=== PATIENT | female | born 1955 | race Caucasian/White ===

== ENCOUNTER 2017-03-16 12:27 | Emergency (ER) | payer BC ==
[2017-03-16] MEDS ORDERED: HYDROCODONE/ACETAMINOPHEN 5-325 MG TABLET PO ONE (13:04)
--- NOTE | 2017-03-16 13:08 | ER Document Report ---
ED General - General Chief Complaint: Fall Stated Complaint: FALL/TAILBONE PAIN, RIGHT KNEE PAIN Time Seen by Provider: 03/16/17 13:00 Mode of Arrival: Medic Information source: Patient Notes: 61-year-old female presents after a slip and fall on the ice landing on her back with complaints of right humeral right knee and low back pain. She denies any neurological deficits, EMS was called because patient was having difficulty trying to get off the ice. She notes that she has fractured her coccyx in the past. She denies any other neuro deficits TRAVEL OUTSIDE OF THE [place] IN LAST 30 DAYS: No - HPI Onset: Just prior to arrival Onset/Duration: Sudden Quality of pain: Achy Severity: Mild Pain Level: 1 Associated symptoms: Body/muscle aches Exacerbated by: Movement Relieved by: Denies Similar symptoms previously: Yes Recently seen / treated by doctor: No - Related Data Allergies/Adverse Reactions: erythromycin lactobionate [From Erythrocin] Allergy (Severe, Verified 03/16/17 12:29) Influenza Virus Vaccines [Influenza Virus Vaccine] Allergy (Severe, Verified 12:29) sumatriptan [From Imitrex] Allergy (Severe, Verified 03/16/17 12:29) pineapple [Pineapple] Allergy (Unknown, Verified 03/16/17 12:29) Past Medical History - Social History Smoking Status: Former Smoker Cigarette use (# per day): No Chew tobacco use (# tins/day): No Smoking Education Provided: No Frequency of alcohol use: Occasional Drug Abuse: None Family History: CAD, CVA, DM, Hyperlipidemia, Hypertension, Malignancy Patient has suicidal ideation: No Patient has homicidal ideation: No - Past Medical History Cardiac Medical History: Reports: Hx Hypercholesterolemia, Hx Hypertension Pulmonary Medical History: Denies: Hx Tuberculosis Endocrine Medical History: Reports: Hx Diabetes Mellitus Type 2 Renal/ Medical History: Denies: Hx Peritoneal Dialysis GI Medical History: Reports: Hx Gastroesophageal Reflux Disease Musculoskeltal Medical History: Reports Hx Arthritis, Reports Hx Musculoskeletal Deformity, Reports Hx Musculoskeletal Trauma Psychiatric Medical History: Reports: Hx Depression Traumatic Medical History: Reports: Hx Fractures Past Surgical History: Reports: Hx Adenoidectomy, Hx Appendectomy, Hx Gastric Bypass Surgery - Gastric sleeve, Hx Hysterectomy, Hx Nose Surgery - For fractured nose, Hx Oral Surgery - [place] teeth, Hx Orthopedic Surgery - orif left tibia and foot, Right knee replacement, Hx Tonsillectomy - Immunizations Hx Diphtheria, Pertussis, Tetanus Vaccination: Yes Review of Systems - Review of Systems Notes: REVIEW OF SYSTEMS: CONSTITUTIONAL : Denies fever, chills, or sweats. Denies recent illness. EENT: Denies eye, ear, throat, or mouth pain or symptoms. Denies nasal or sinus congestion or discharge. Denies throat, tongue, or mouth swelling or difficulty swallowing. CARDIOVASCULAR: Denies chest pain. Denies palpitations or racing or irregular heart beat. Denies ankle edema. RESPIRATORY: Denies cough, cold, or chest congestion. Denies shortness of breath, difficulty breathing, or wheezing. GASTROINTESTINAL: Denies abdominal pain or distention. Denies nausea, vomiting , or diarrhea. Denies blood in vomitus, stools, or per rectum. Denies black, tarry stools. Denies constipation. GENITOURINARY: Denies difficulty urinating, painful urination, burning, frequency, blood in urine, or discharge. FEMALE GENITOURINARY: Denies vaginal bleeding, heavy or abnormal periods, irregular periods. Denies vaginal discharge or odor. MUSCULOSKELETAL: Admits to right humerus right knee and low back pain SKIN: Denies rash, lesions or sores. HEMATOLOGIC : Denies easy bruising or bleeding. LYMPHATIC: Denies swollen, enlarged glands. NEUROLOGICAL: Denies confusion or altered mental status. Denies passing out or loss of consciousness. Denies dizziness or lightheadedness. Denies headache. Denies weakness or paralysis or loss of use of either side. Denies problems with gait or speech. Denies sensory loss, numbness, or tingling. Denies seizures. PSYCHIATRIC: Denies anxiety or stress. Denies depression, suicidal ideation, or homicidal ideation. ALL OTHER SYSTEMS REVIEWED AND NEGATIVE. PHYSICAL EXAMINATION: GENERAL: Well-appearing, well-nourished and in no acute distress. HEAD: Atraumatic, normocephalic. EYES: Pupils equal round and reactive to light, extraocular movements intact, conjunctiva are normal. ENT: Nares patent, oropharynx clear without exudates. Moist mucous membranes. NECK: Normal range of motion, supple without lymphadenopathy LUNGS: Breath sounds clear to auscultation bilaterally and equal. No wheezes rales or rhonchi. HEART: Regular rate and rhythm without murmurs ABDOMEN: Soft, nontender, nondistended abdomen. No guarding, no rebound. No masses appreciated. Female : deferred Musculoskeletal: Normal range of motion, no pitting or edema. No cyanosis. Patient does have tenderness in the lumbosacral region paraspinal, she has no tenderness with range of motion of the right knee postsurgical changes noted, it is tender on the right lateral aspect of the knee, patient has full range of motion of the right humerus elbow and shoulder. She has no tenderness at the shoulders or elbow NEUROLOGICAL: Cranial nerves grossly intact. Normal speech, normal gait. Normal sensory, motor exams PSYCH: Normal mood, normal affect. SKIN: Warm, Dry, normal turgor, no rashes or lesions noted. Dictation was performed using [employer] voice recognition software Physical Exam - Vital signs Vitals: Temp Pulse Resp BP Pulse Ox 98.9 F 77 16 114/67 99 03/16/17 12:34 03/16/17 12:34 03/16/17 12:34 03/16/17 12:34 03/16/17 12:34 Course - Re-evaluation Re-evalutation: 03/16/17 13:08 X-rays are pending, I have very low suspicion for any injury of the elbow shoulder or knee, I do expect a fracture of the coccyx given patient's presentation she will be given pain control otherwise looks extremely well has no neuro deficits 03/16/17 15:17 Imaging noted no obvious fracture, patient overall looks well. She will be discharged home with very close follow-up After performing a Medical Screening Examination, I estimate there is LOW risk for INTRACRANIAL HEMORRHAGE, UNSTABLE SPINE FRACTURE, CENTRAL CORD SYNDROME, CAUDA EQUINA, THORACIC AORTIC DISSECTION, PNEUMOTHORAX, PERFORATED BOWEL, RUPTURED ABDOMINAL AORTIC ANEURYSM, ACUTE TENDON RUPTURE, COMPARTMENT SYNDROME, or OPEN FRACTURE, thus I consider the discharge disposition reasonable. Also, there is no evidence or peritonitis, sepsis, or toxicity. I have reevaluated this patient multiple times and no significant life threatening changes are noted. The patient and I have discussed the diagnosis and risks, and we agree with discharging home to follow-up with their primary doctor with the understanding that symptoms and presentations can change. We also discussed returning to the Emergency Department immediately if new or worsening symptoms occur. We have discussed the symptoms which are most concerning (e.g., bloody stool, fever, changing or worsening pain, vomiting) that necessitate immediate return. - Vital Signs Vital signs: Temp Pulse Resp BP Pulse Ox 98.9 F 77 16 114/67 99 03/16/17 12:34 03/16/17 12:34 03/16/17 12:34 03/16/17 12:34 03/16/17 12:34 - Diagnostic Test Radiology reviewed: Image reviewed, Reports reviewed Discharge - Discharge Clinical Impression: Fall, Contusion, Arm pain, Back pain Condition: Stable Disposition: HOME, SELF-CARE Instructions: Contusion ([facility]) Additional Instructions: Follow up with your physician tomorrow for further care or return to the ED IMMEDIATELY if symptoms worsen or new concerns occur. If you cannot afford to follow up with your primary care physician a list of low cost clinics have been provided at the end of your discharge papers as well.
--- NOTE | 2017-03-16 15:00 | RADIOLOGY REPORT (SQ) ---
EXAM DESCRIPTION: HUMERUS RIGHT COMPLETED DATE/TIME: 03/16/2017 2:33 pm REASON FOR STUDY: slip fall on [place] COMPARISON: None. NUMBER OF VIEWS: Two views. TECHNIQUE: Two radiographic images were acquired of the right humerus to include elbow and shoulder in at least one projection. LIMITATIONS: None. FINDINGS: MINERALIZATION: Normal. BONES: No acute fracture or dislocation. No worrisome bone lesions. SOFT TISSUES: No obvious swelling or foreign body. OTHER: No other significant finding. IMPRESSION: NEGATIVE STUDY OF THE RIGHT HUMERUS. NO RADIOGRAPHIC EVIDENCE OF ACUTE INJURY. TECHNICAL DOCUMENTATION: JOB ID: [id number] [employer]- All Rights Reserved
--- NOTE | 2017-03-16 15:06 | RADIOLOGY REPORT (SQ) ---
EXAM DESCRIPTION: KNEE RIGHT 3 VIEWS COMPLETED DATE/TIME: 03/16/2017 2:33 pm REASON FOR STUDY: slip fall on [place] COMPARISON: None. NUMBER OF VIEWS: Three views TECHNIQUE: AP, lateral, and sunrise patella radiographic images acquired of the right knee. LIMITATIONS: None. FINDINGS: MINERALIZATION: Normal. BONES: No acute fracture or dislocation. No worrisome bone lesions. JOINT: Patient is status post right total knee replacement. The prosthesis appears well seated in th e distal femur and proximal tibia in the projections obtained. SOFT TISSUES: No soft tissue swelling. No radio-opaque foreign body. OTHER: Calcific densities are identified in the soft tissues anterior to the distal femur which may b e related to myositis ossificans IMPRESSION: No acute fracture dislocation. Status post right total knee replacement. Other finding s as noted above TECHNICAL DOCUMENTATION: JOB ID: [id number] [employer]- All Rights Reserved
--- NOTE | 2017-03-16 15:08 | RADIOLOGY REPORT (SQ) ---
EXAM DESCRIPTION: L SPINE WHOLE COMPLETED DATE/TIME: 03/16/2017 2:33 pm REASON FOR STUDY: slip fall on [place] COMPARISON: None. NUMBER OF VIEWS: Five views including obliques. TECHNIQUE: AP, lateral, oblique, and sacral radiographic images acquired of the lumbar spine. LIMITATIONS: None. FINDINGS: MINERALIZATION: Normal. SEGMENTATION: Transition vertebra is identified at the lumbar sacral junction ALIGNMENT: Normal. VERTEBRAE: Maintained height. No fracture or worrisome bone lesion. DISCS: Preserved height. No significant osteophytes or end plate irregularity. POSTERIOR ELEMENTS: Pedicles and facets are intact. No pars defect or posterior arch defects. HARDWARE: None in the spine. PARASPINAL SOFT TISSUES: Normal. PELVIS: Intact as visualized. No fractures or worrisome bone lesions. There is some bony deformity a t the level of the pubic symphysis which may be related to previous trauma OTHER: No other significant finding. IMPRESSION: No acute posttraumatic changes involving the lumbar spine. Other findings as noted [email or web address] TECHNICAL DOCUMENTATION: JOB ID: [id number] [employer]- All Rights Reserved
--- NOTE | 2017-03-16 15:09 | RADIOLOGY REPORT (SQ) ---
EXAM DESCRIPTION: SACRUM AND COCCYX COMPLETED DATE/TIME: 03/16/2017 2:33 pm REASON FOR STUDY: slip fall on [place] COMPARISON: None. NUMBER OF VIEWS: Three views. TECHNIQUE: AP, lateral, and tilt views of the sacrum and coccyx. LIMITATIONS: None. FINDINGS: MINERALIZATION: Normal. BONES: No acute fracture or dislocation. No worrisome bone lesions. SOFT TISSUES: No soft tissue swelling. No foreign body. OTHER: No other significant finding. IMPRESSION: NEGATIVE STUDY OF THE SACRUM AND COCCYX. TECHNICAL DOCUMENTATION: JOB ID: [id number] [employer]- All Rights Reserved
[2017-03-16 15:23] VITALS: BP 116/57
== END 2017-03-16 15:25 | disposition home or self-care (01) ==
LOC: ER 12:27
DX: S30.0XXA Contusion of lower back and pelvis, initial encounter (principal); M79.601 Pain in right arm; M54.5 Low back pain; M25.561 Pain in right knee; W00.0XXA Fall on same level due to ice and snow, initial encounter; Z87.891 Personal history of nicotine dependence
CPT/HCPCS: 72110; 72220; 99283

== ENCOUNTER → 2017-05-27 | Outpatient (CLI) | payer BC ==
--- NOTE | 2017-05-27 10:27 | RADIOLOGY REPORT (SQ) ---
EXAM DESCRIPTION: KUB COMPLETED DATE/TIME: 05/27/2017 9:34 am REASON FOR STUDY: Unspecified renal colic COMPARISON: None. NUMBER OF VIEWS: One view. TECHNIQUE: Supine radiographic image of the abdomen acquired. LIMITATIONS: None. FINDINGS: BOWEL GAS PATTERN: Normal bowel gas pattern. No dilated loops. CALCIFICATIONS: Multiple phleboliths. SOFT TISSUES: No gross mass or suggestion of organomegaly. HARDWARE: None in the abdomen. BONES: No acute fracture. No worrisome bone lesions. OTHER: No other significant finding. IMPRESSION: NO RADIOGRAPHIC EVIDENCE FOR ACUTE ABDOMINAL DISEASE. TECHNICAL DOCUMENTATION: JOB ID: [id number] [employer]- All Rights Reserved Reading location - IP/workstation name: [email or web address]
== END ==
LOC: OD 09:13
PROVIDERS: ATTEND Internal Medicine
DX: N23 Unspecified renal colic (principal)
CPT/HCPCS: 74018

== ENCOUNTER → 2017-07-19 | Outpatient (CLI) | payer BC ==
[2017-07-19 09:40] LABS: ABSOLUTE BASOPHILS # (AUTO) 0.1 10^3/uL (0.0-0.2); ABSOLUTE EOSINOPHILS # (AUTO) 0.2 10^3/uL (0.0-0.6); ABSOLUTE LYMPHOCYTES (AUTO) 2.7 10^3/uL (0.5-4.7); ABSOLUTE MONOCYTES (AUTO) 0.6 10^3/uL (0.1-1.4); BASOPHILS % (AUTO) 0.5 % (0-2); EOSINOPHILS % (AUTO) 1.3 % (0-6); HEMATOCRIT 39.2 % (36.0-47.0); HEMOGLOBIN 13.2 g/dL (12.0-15.5); LYMPHOCYTES % (AUTO) 23.7 % (13-45); MEAN CORPUSCULAR HEMOGLOBIN 30.8 pg (27.0-33.4); MEAN CORPUSCULAR HGB CONC 33.8 g/dL (32.0-36.0); MEAN CORPUSCULAR VOLUME 91 fl (80-97); MONOCYTES % (AUTO) 5.4 % (3-13); PLATELET COUNT 215 10^3/uL (150-450); RED CELL DISTRIBUTION WIDTH 13.1 % (11.5-14.0); SEGMENTED NEUTROPHILS % (AUTO) 69.1 % (42-78); TOTAL CELLS COUNTED % (AUTO) 100 %; WHITE BLOOD COUNT 11.6 10^3/uL (4.0-10.5)
[2017-07-19 10:02] LABS: ALANINE AMINOTRANSFERASE 36 U/L (9-52); ALBUMIN 4.1 g/dL (3.5-5.0); ALKALINE PHOSPHATASE 103 U/L (38-126); ANION GAP 12 (5-19); ASPARTATE AMINO TRANSFERASE 20 U/L (14-36); BILIRUBIN,DIRECT 0.3 mg/dL (0.0-0.4); BILIRUBIN,TOTAL 0.7 mg/dL (0.2-1.3); BLOOD UREA NITROGEN 21 mg/dL (7-20); CARBON DIOXIDE 29 mmol/L (22-30); CHLORIDE 100 mmol/L (98-107); CHOLESTEROL 107.77 mg/dL (0-200); GLUCOSE 268 mg/dL (75-110); POTASSIUM 4.7 mmol/L (3.6-5.0); TOTAL PROTEIN 6.2 g/dL (6.3-8.2); TRIGLYCERIDES 122 mg/dL (<150)
[2017-07-19 10:13] LABS: DIRECT LDL 52 mg/dL (<100); FREE T4 (FREE THYROXINE) 1.11 ng/dL (0.78-2.19)
[2017-07-19 10:20] LABS: UR PRO/CREAT RATIO RESULT 0.1 mg/mg (0.0-0.2); URINE CREATININE 68.8 mg/dL (15-278); URINE PROTEIN 9.8 mg/dL (<12)
[2017-07-19 10:28] LABS: THYROID STIMULATING HORMONE 2.48 uIU/mL (0.47-4.68)
[2017-07-20 13:56] LABS: CREATININE URINE 67.4 mg/dL (Not Estab.); MICROALBUMIN URINE 3.3 ug/mL (Not Estab.)
[2017-07-20 16:39] LABS: A/G RATIO 1.7 (0.7-1.7); ALBUMIN 2 3.9 g/dL (2.9-4.4); ALBUMIN UR 37.2 % (.); ALPHA-1-GLOBULIN URINE 4.4 % (.); ALPHA-2-GLOBULIN 2 0.7 g/dL (0.4-1.0); ALPHA-2-GLOBULIN URINE 11.8 % (.); GAMMA GLOBULIN 0.5 g/dL (0.4-1.8); GAMMA GLOBULIN URINE 18.7 % (.); GLOBULIN TOTAL 2.3 g/dL (2.2-3.9); M-SPIKE % UR Not Observed % (Not Observ); MONOCLONAL SPIKE Not Observed g/dL (Not Observ); PROTEIN TOTAL SERUM 6.2 g/dL (6.0-8.5); PROTEIN TOTAL URINE 7.2 mg/dL (Not Estab.)
== END ==
LOC: OD 08:02
PROVIDERS: ATTEND Internal Medicine
DX: E11.42 Type 2 diabetes mellitus with diabetic polyneuropathy (principal)
CPT/HCPCS: 36415; 80053; 80061; 82043; 82570; 83036; 84156; 84165; 84166; 84439; 84443; 85025

== ENCOUNTER 2017-07-31 15:35 | Observation (INO) | payer BC ==
[2017-07-31] MEDS ORDERED: ASPIRIN 81 MG TABLET, CHEWABLE PO ONE (17:03)
--- NOTE | 2017-07-31 17:06 | ER Document Report ---
ED Medical Screen (RME) - General Chief Complaint: Chest Pain Stated Complaint: CHEST PAIN Time Seen by Provider: 07/31/17 16:57 TRAVEL OUTSIDE OF THE [place] IN LAST 30 DAYS: No - HPI Patient complains to provider of: chest pain Notes: 07/31/17 17:05 Morbidly obese diabetic female A1c of approximately 13 presents with chest pressure and right hand tingling. Patient states the symptoms started on Monday. Has been so weak and tired all weekend. Today went to work and was very tired mildly nauseous. Patient denies fever chills or cough. No diarrhea or dysuria. Has had a negative stress test performed in the past most recently December 2015. - Related Data Allergies/Adverse Reactions: erythromycin lactobionate [From Erythrocin] Allergy (Severe, Verified 03/16/17 12:29) Influenza Virus Vaccines [Influenza Virus Vaccine] Allergy (Severe, Verified 12:29) sumatriptan [From Imitrex] Allergy (Severe, Verified 03/16/17 12:29) pineapple [Pineapple] Allergy (Unknown, Verified 03/16/17 12:29) Past Medical History - Past Medical History Cardiac Medical History: Reports: Hx Hypercholesterolemia, Hx Hypertension Pulmonary Medical History: Denies: Hx Tuberculosis Endocrine Medical History: Reports: Hx Diabetes Mellitus Type 2 Renal/ Medical History: Denies: Hx Peritoneal Dialysis GI Medical History: Reports: Hx Gastroesophageal Reflux Disease Musculoskeltal Medical History: Reports Hx Arthritis, Reports Hx Musculoskeletal Deformity, Reports Hx Musculoskeletal Trauma Psychiatric Medical History: Reports: Hx Depression Traumatic Medical History: Reports: Hx Fractures Past Surgical History: Reports: Hx Adenoidectomy, Hx Appendectomy, Hx Gastric Bypass Surgery - Gastric sleeve, Hx Hysterectomy, Hx Nose Surgery - For fractured nose, Hx Oral Surgery - [place] teeth, Hx Orthopedic Surgery - orif left tibia and foot, Right knee replacement, Hx Tonsillectomy - Immunizations Hx Diphtheria, Pertussis, Tetanus Vaccination: Yes Physical Exam - Vital signs Vitals: Temp Pulse Resp BP Pulse Ox 98.7 F 98 18 117/72 95 07/31/17 15:51 07/31/17 15:51 07/31/17 15:51 07/31/17 15:51 07/31/17 15:51 Course - Vital Signs Vital signs: Temp Pulse Resp BP Pulse Ox 98.7 F 98 18 117/72 95 07/31/17 15:51 07/31/17 15:51 07/31/17 15:51 07/31/17 15:51 07/31/17 15:51 Doctor's Discharge - Discharge Referrals: KRYSTAL REID MD [Primary Care Provider] - Follow up as needed
[2017-07-31] MEDS: NITROGLYCERIN 0.4 MG/TAB 25 TAB/BOTTLE SL PRN ×2 (17:25→20:52)
[2017-07-31 18:06] LABS: ABSOLUTE BASOPHILS # (AUTO) 0.1 10^3/uL (0.0-0.2); ABSOLUTE LYMPHOCYTES (AUTO) 2.8 10^3/uL (0.5-4.7); ABSOLUTE MONOCYTES (AUTO) 0.6 10^3/uL (0.1-1.4); ABSOLUTE NEUT (AUTO) 5.1 10^3/uL (1.7-8.2); BASOPHILS % (AUTO) 0.6 % (0-2); EOSINOPHILS % (AUTO) 0.5 % (0-6); HEMATOCRIT 40.4 % (36.0-47.0); HEMOGLOBIN 13.7 g/dL (12.0-15.5); LYMPHOCYTES % (AUTO) 32.4 % (13-45); MEAN CORPUSCULAR HEMOGLOBIN 31.1 pg (27.0-33.4); MEAN CORPUSCULAR VOLUME 92 fl (80-97); MONOCYTES % (AUTO) 7.4 % (3-13); PLATELET COUNT 252 10^3/uL (150-450); RED BLOOD COUNT 4.41 10^6/uL (3.72-5.28); RED CELL DISTRIBUTION WIDTH 13.3 % (11.5-14.0); SEGMENTED NEUTROPHILS % (AUTO) 59.1 % (42-78); TOTAL CELLS COUNTED % (AUTO) 100 %; WHITE BLOOD COUNT 8.7 10^3/uL (4.0-10.5)
--- NOTE | 2017-07-31 18:08 | RADIOLOGY REPORT (SQ) ---
EXAM DESCRIPTION: CHEST 2 VIEWS COMPLETED DATE/TIME: 07/31/2017 5:55 pm REASON FOR STUDY: chest pain COMPARISON: 04/24/2014 EXAM PARAMETERS: NUMBER OF VIEWS: two views TECHNIQUE: Digital Frontal and Lateral radiographic views of the chest acquired. RADIATION DOSE: NA LIMITATIONS: none FINDINGS: LUNGS AND PLEURA: No opacities, masses or pneumothorax. No pleural effusion. MEDIASTINUM AND HILAR STRUCTURES: No masses or contour abnormalities. HEART AND VASCULAR STRUCTURES: Heart normal size. No evidence for failure. BONES: No acute findings. HARDWARE: None in the chest. OTHER: No other significant finding. IMPRESSION: NO ACUTE RADIOGRAPHIC FINDING IN THE CHEST. TECHNICAL DOCUMENTATION: JOB ID: [id number] [employer]- All Rights Reserved Reading location - IP/workstation name: [email or web address]
[2017-07-31 18:27] LABS: ANION GAP 13 (5-19); BLOOD UREA NITROGEN 24 mg/dL (7-20); CALCIUM 10.6 mg/dL (8.4-10.2); CARBON DIOXIDE 29 mmol/L (22-30); CHLORIDE 100 mmol/L (98-107); GLUCOSE 267 mg/dL (75-110); POTASSIUM 4.8 mmol/L (3.6-5.0); SODIUM 141.5 mmol/L (137-145)
--- NOTE | 2017-07-31 19:21 | ER Document Report ---
ED General - General Chief Complaint: Chest Pain Stated Complaint: CHEST PAIN Time Seen by Provider: 07/31/17 16:57 Mode of Arrival: Ambulatory Information source: Patient Notes: 62-year-old female history of diabetes presents with complaints of pressure sensation on her chest. Patient notes that it feels like an elephant sitting on her chest rating down her right arm feels like electricity pain down the arms with tingling sensation. She denies any fevers or chills denies any shortness breath difficulty breathing TRAVEL OUTSIDE OF THE [place] IN LAST 30 DAYS: No - HPI Onset: Other - 2 day duration Onset/Duration: Persistent Quality of pain: Pressure Severity: Mild Pain Level: 1 Associated symptoms: Chest pain Exacerbated by: Denies Relieved by: Denies Similar symptoms previously: No Recently seen / treated by doctor: No Notes: Stress test 2016 but an abnormal on previous to this - Related Data Allergies/Adverse Reactions: erythromycin lactobionate [From Erythrocin] Allergy (Severe, Verified 03/16/17 12:29) Influenza Virus Vaccines [Influenza Virus Vaccine] Allergy (Severe, Verified 12:29) sumatriptan [From Imitrex] Allergy (Severe, Verified 03/16/17 12:29) pineapple [Pineapple] Allergy (Unknown, Verified 03/16/17 12:29) Past Medical History - Social History Smoking Status: Never Smoker Cigarette use (# per day): No Chew tobacco use (# tins/day): No Smoking Education Provided: No Frequency of alcohol use: None Drug Abuse: None Family History: CAD, CVA, DM, Hyperlipidemia, Hypertension, Malignancy Patient has suicidal ideation: No Patient has homicidal ideation: No - Past Medical History Cardiac Medical History: Reports: Hx Hypercholesterolemia, Hx Hypertension Pulmonary Medical History: Denies: Hx Tuberculosis Endocrine Medical History: Reports: Hx Diabetes Mellitus Type 2 Renal/ Medical History: Denies: Hx Peritoneal Dialysis GI Medical History: Reports: Hx Gastroesophageal Reflux Disease Musculoskeltal Medical History: Reports Hx Arthritis, Reports Hx Musculoskeletal Deformity, Reports Hx Musculoskeletal Trauma Psychiatric Medical History: Reports: Hx Depression Traumatic Medical History: Reports: Hx Fractures Past Surgical History: Reports: Hx Adenoidectomy, Hx Appendectomy, Hx Gastric Bypass Surgery - Gastric sleeve, Hx Hysterectomy, Hx Nose Surgery - For fractured nose, Hx Oral Surgery - [place] teeth, Hx Orthopedic Surgery - orif left tibia and foot, Right knee replacement, Hx Tonsillectomy - Immunizations Hx Diphtheria, Pertussis, Tetanus Vaccination: Yes Review of Systems - Review of Systems Notes: REVIEW OF SYSTEMS: CONSTITUTIONAL : Denies fever, chills, or sweats. Denies recent illness. EENT: Denies eye, ear, throat, or mouth pain or symptoms. Denies nasal or sinus congestion or discharge. Denies throat, tongue, or mouth swelling or difficulty swallowing. CARDIOVASCULAR: Admits to chest pain RESPIRATORY: Denies cough, cold, or chest congestion. Denies shortness of breath, difficulty breathing, or wheezing. GASTROINTESTINAL: Denies abdominal pain or distention. Denies nausea, vomiting , or diarrhea. Denies blood in vomitus, stools, or per rectum. Denies black, tarry stools. Denies constipation. GENITOURINARY: Denies difficulty urinating, painful urination, burning, frequency, blood in urine, or discharge. FEMALE GENITOURINARY: Denies vaginal bleeding, heavy or abnormal periods, irregular periods. Denies vaginal discharge or odor. MUSCULOSKELETAL: Denies back or neck pain or stiffness. Denies joint pain or swelling. SKIN: Denies rash, lesions or sores. HEMATOLOGIC : Denies easy bruising or bleeding. LYMPHATIC: Denies swollen, enlarged glands. NEUROLOGICAL: Denies confusion or altered mental status. Denies passing out or loss of consciousness. Denies dizziness or lightheadedness. Denies headache. Denies weakness or paralysis or loss of use of either side. Denies problems with gait or speech. Denies sensory loss, numbness, or tingling. Denies seizures. PSYCHIATRIC: Denies anxiety or stress. Denies depression, suicidal ideation, or homicidal ideation. ALL OTHER SYSTEMS REVIEWED AND NEGATIVE. PHYSICAL EXAMINATION: GENERAL: Well-appearing, well-nourished and in no acute distress. HEAD: Atraumatic, normocephalic. EYES: Pupils equal round and reactive to light, extraocular movements intact, conjunctiva are normal. ENT: Nares patent, oropharynx clear without exudates. Moist mucous membranes. NECK: Normal range of motion, supple without lymphadenopathy LUNGS: Breath sounds clear to auscultation bilaterally and equal. No wheezes rales or rhonchi. HEART: Regular rate and rhythm without murmurs ABDOMEN: Soft, nontender, nondistended abdomen. No guarding, no rebound. No masses appreciated. Female : deferred Musculoskeletal: Normal range of motion, no pitting or edema. No cyanosis. NEUROLOGICAL: Cranial nerves grossly intact. Normal speech, normal gait. Normal sensory, motor exams PSYCH: Normal mood, normal affect. SKIN: Warm, Dry, normal turgor, no rashes or lesions noted. Dictation was performed using [employer] voice recognition software Physical Exam - Vital signs Vitals: Temp Pulse Resp BP Pulse Ox 98.7 F 98 18 117/72 95 07/31/17 15:51 07/31/17 15:51 07/31/17 15:51 07/31/17 15:51 07/31/17 15:51 Course - Re-evaluation Re-evalutation: 07/31/17 19:19 First set of cardiac enzymes negative, patient's blood sugars noted to be elevated otherwise she is at rest in no discomfort, I will observe her due to her risk factors and presentation her primary care physician will admit - Vital Signs Vital signs: Temp Pulse Resp BP Pulse Ox 98.7 F 98 18 117/72 95 07/31/17 15:51 07/31/17 15:51 07/31/17 15:51 07/31/17 15:51 07/31/17 15:51 - Laboratory Result Diagrams: 07/31/17 17:47 07/31/17 17:47 Laboratory results interpreted by me: 07/31/17 17:47 BUN 24 H Glucose 267 H Calcium 10.6 H - Diagnostic Test Radiology reviewed: Image reviewed - 2 view chest x-ray notes no acute abnormality, Reports reviewed - EKG Interpretation by Me EKG shows normal: Sinus rhythm, [place], Intervals, QRS Complexes Discharge - Discharge Clinical Impression: Chest pain Qualifiers: Chest pain type: unspecified Qualified Code(s): R07.9 - Chest pain, unspecified Condition: Stable Disposition: ADMITTED OBSERVATION Admitting Provider: [facility] Admitted: Telemetry Referrals: KRYSTAL REID MD [Primary Care Provider] - Follow up as needed
--- NOTE | 2017-07-31 19:57 | EKG REPORT ---
SEVERITY:- OTHERWISE NORMAL ECG - SINUS RHYTHM RIGHT AXIS DEVIATION LOW VOLTAGE IN FRONTAL LEADS : Confirmed by: Margarette Del Rio MD 31-Jul-2017 19:56:34
[2017-07-31] MEDS ORDERED: ALBUTEROL SULFATE HFA (90 MCG/PUFF) 200 PUFF/8.5 GM MDI IH PRN (21:35)
[2017-07-31] MEDS ORDERED: GLUCAGON,HUMAN RECOMB 1 MG INJ IM PRN (21:41)
[2017-07-31] MEDS ORDERED: DEXTROSE 40% GEL 15 GM TUBE PO PRN ×2 (21:41)
[2017-07-31] MEDS ORDERED: DEXTROSE 50%-WATER 25 GM/50 ML DISP.SYRIN IV PRN ×2 (21:41)
[2017-07-31] MEDS ORDERED: (PENDING PHARMACY ID) (Esomeprazole Mag Trihydrate [Nexium] 40 MG) PO SCH (21:45)
[2017-07-31] MEDS ORDERED: (PENDING PHARMACY ID) (Canagliflozin [Invokana] 100 MG) PO SCH (21:45)
[2017-07-31] MEDS ORDERED: (PENDING PHARMACY ID) (Mv-Min/Iron/Folic/Calcium/Vitk [Women's Multivitamin Tablet] 1 TAB) PO SCH (21:45)
[2017-07-31 22:09] LABS: ABSOLUTE BASOPHILS # (AUTO) 0.1 10^3/uL (0.0-0.2); ABSOLUTE EOSINOPHILS # (AUTO) 0.1 10^3/uL (0.0-0.6); ABSOLUTE LYMPHOCYTES (AUTO) 3.7 10^3/uL (0.5-4.7); ABSOLUTE MONOCYTES (AUTO) 0.8 10^3/uL (0.1-1.4); ABSOLUTE NEUT (AUTO) 4.4 10^3/uL (1.7-8.2); BASOPHILS % (AUTO) 1.3 % (0-2); EOSINOPHILS % (AUTO) 0.8 % (0-6); HEMATOCRIT 39.4 % (36.0-47.0); HEMOGLOBIN 13.5 g/dL (12.0-15.5); LYMPHOCYTES % (AUTO) 40.8 % (13-45); MEAN CORPUSCULAR HEMOGLOBIN 31.1 pg (27.0-33.4); MEAN CORPUSCULAR HGB CONC 34.4 g/dL (32.0-36.0); MEAN CORPUSCULAR VOLUME 91 fl (80-97); MONOCYTES % (AUTO) 8.6 % (3-13); PLATELET COUNT 221 10^3/uL (150-450); RED BLOOD COUNT 4.34 10^6/uL (3.72-5.28); RED CELL DISTRIBUTION WIDTH 13.3 % (11.5-14.0); SEGMENTED NEUTROPHILS % (AUTO) 48.5 % (42-78); TOTAL CELLS COUNTED % (AUTO) 100 %; WHITE BLOOD COUNT 9.2 10^3/uL (4.0-10.5)
[2017-07-31] MEDS: ENOXAPARIN SODIUM INJ 100 MG/1 ML DISP.SYRIN SUBCUT SCH (22:09)
[2017-07-31 22:11] LABS: INTERNATIONAL RATION (INR) 0.96; PROTHROMBIN TIME 13.3 SEC (11.4-15.4)
[2017-07-31] MEDS ORDERED: METFORMIN HCL 500 MG TABLET PO ONE (22:15)
[2017-07-31] MEDS ORDERED: MULTIVITAMIN TABLET PO ONE (22:15)
[2017-07-31] MEDS ORDERED: LANSOPRAZOLE 30 MG TAB.RAP.DR PO ONE (22:15)
[2017-07-31] MEDS ORDERED: ATORVASTATIN CALCIUM 40 MG TABLET PO ONE (22:15)
[2017-07-31] MEDS ORDERED: SERTRALINE HCL 50 MG TABLET PO ONE (22:15)
[2017-07-31] MEDS ORDERED: LISINOPRIL 10 MG TABLET PO ONE (22:15)
[2017-07-31] MEDS ORDERED: LORATADINE 10 MG TABLET PO ONE (22:15)
[2017-07-31 22:29] LABS: ANION GAP 14 (5-19); BLOOD UREA NITROGEN 23 mg/dL (7-20); CALCIUM 10.6 mg/dL (8.4-10.2); CARBON DIOXIDE 26 mmol/L (22-30); CHLORIDE 103 mmol/L (98-107); GLUCOSE 208 mg/dL (75-110); PHOSPHORUS 4.2 mg/dL (2.5-4.5); POTASSIUM 4.2 mmol/L (3.6-5.0); SODIUM 142.6 mmol/L (137-145)
[2017-07-31] MEDS ORDERED: CLOPIDOGREL BISULFATE 300 MG TABLET PO ONE (22:30)
[2017-07-31 22:50] LABS: CREATINE KINASE MB 0.35 ng/mL (<4.55)
[2017-07-31 22:53] LABS: TROPONIN I < 0.012 ng/mL
[2017-08-01 00:39] LABS: APPEARANCE,URINE CLEAR; BILIRUBIN,URINE NEGATIVE (NEGATIVE); COLOR,URINE YELLOW; GLUCOSE, URINE >=500 mg/dL (NEGATIVE); KETONES,URINE NEGATIVE (NEGATIVE); LEUKOCYTE ESTERASE,URINE NEGATIVE (NEGATIVE); NITRITE,URINE NEGATIVE (NEGATIVE); PROTEIN,URINE NEGATIVE (NEGATIVE); URINE SPECIFIC GRAVITY 1.029; UROBILINOGEN,URINE NEGATIVE mg/dL (<2.0)
[2017-08-01 04:15] LABS: CHOLESTEROL 123.03 mg/dL (0-200); TRIGLYCERIDES 227 mg/dL (<150)
[2017-08-01 04:25] LABS: DIRECT LDL 56 mg/dL (<100)
[2017-08-01 04:26] LABS: CREATINE KINASE MB 0.32 ng/mL (<4.55); VLDL CHOLESTEROL 45.4 mg/dL (10-31)
[2017-08-01 04:27] LABS: TROPONIN I < 0.012 ng/mL
[2017-08-01] MEDS: METFORMIN HCL 500 MG TABLET PO SCH ×2 (07:59→16:26)
--- NOTE | 2017-08-01 09:54 | EKG REPORT ---
SEVERITY:- BORDERLINE ECG - SINUS RHYTHM LOW VOLTAGE IN FRONTAL LEADS BORDERLINE R WAVE PROGRESSION, ANTERIOR LEADS : Confirmed by: Margarette Del Rio MD 01-Aug-2017 09:53:18
[2017-08-01] MEDS ORDERED: (PENDING PHARMACY ID) (Dulaglutide [Trulicity] 1.5 MG) SQ SCH (10:00)
[2017-08-01] MEDS ORDERED: (PENDING PHARMACY ID) (Canagliflozin [Invokana] 100 MG) PO SCH (10:00)
[2017-08-01] MEDS: LISINOPRIL 10 MG TABLET PO SCH (10:14)
[2017-08-01] MEDS: ASPIRIN 81 MG TABLET, CHEWABLE PO SCH (10:14)
[2017-08-01] MEDS: CLOPIDOGREL BISULFATE 75 MG TABLET PO SCH (10:15)
[2017-08-01] MEDS: LORATADINE 10 MG TABLET PO SCH (10:16)
[2017-08-01] MEDS: MULTIVITAMIN TABLET PO SCH (10:16)
[2017-08-01] MEDS: SERTRALINE HCL 50 MG TABLET PO SCH (10:16)
[2017-08-01] MEDS: ATORVASTATIN CALCIUM 40 MG TABLET PO SCH (10:16)
[2017-08-01] MEDS: ENOXAPARIN SODIUM INJ 100 MG/1 ML DISP.SYRIN SUBCUT SCH ×2 (10:22→22:36)
[2017-08-01] MEDS: NITROGLYCERIN/D5W 50 MG/250 ML RTUINJ IV PRN (10:34)
[2017-08-01 12:16] LABS: CREATINE KINASE MB 0.77 ng/mL (<4.55)
[2017-08-01 12:19] LABS: TROPONIN I < 0.012 ng/mL
[2017-08-01] MEDS: LANSOPRAZOLE 30 MG TAB.RAP.DR PO SCH (17:37)
[2017-08-01 18:22] LABS: CREATINE KINASE MB 2.58 ng/mL (<4.55)
[2017-08-01 18:28] LABS: TROPONIN I < 0.012 ng/mL
--- NOTE | 2017-08-01 20:34 | PDOC H&P ---
History of Present Illness Admission Date/PCP: 07/31/17 19:32 History of Present Illness: KVNG CARRILLO is a 62 year old female,She came to the emergency room for evaluation of chest pain, she stated that the chest pain feels like elephant sitting on the chest ,like chest pressure, she has the pain for the last 3 days , she came to the emergency room for evaluation of this chest pressure, in the emergency room a 12-lead EKG was done, it was sinus rhythm there is no definitive ST-T segment deviation there is no change on the EKG from the last EKG that was done about 2 years ago, she had a nuclear stress test in this hospital 2 years ago which was negative for any acute reversibility that would suggest ischemia. 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 The chest pressure she is experiencing is highly suspicious for angina, patient is admitted with a working diagnosis of unstable angina, she is started on nitroglycerin drip, Plavix 300 mg p.o. 1 dose dose 25 mg p.o. daily aspirin 81 mg 2 tablet p.o. daily Lovenox 1 MCG per KG subcu every 12 hours. She was brought in for observation the intent was to do a stress test today if chest pain resolves though, there is improvement in the chest pressure but there is no compplete resolution of the chest pressure. Past Medical History Cardiac Medical History: Reports: Hyperlipidema, Hypertension Neurological Medical History: Reports: Other - Personal history of Guillain-Goodwin syndrome Endocrine Medical History: Reports: Diabetes Mellitus Type 2 GI Medical History: Reports: Gastroesophageal Reflux Disease Musculoskeltal Medical History: Reports: Arthritis Psychiatric Medical History: Reports: Depression - zoloft Past Surgical History Past Surgical History: Reports: Adenoidectomy, Appendectomy, Gastric Bypass Surgery - Gastric sleeve, Hysterectomy, Orthopedic Surgery - orif left tibia and foot, Right knee replacement, Tonsillectomy Social History Smoking Status: Never Smoker Frequency of Alcohol Use: None Hx Recreational Drug Use: No Drugs: None Hx Prescription Drug Abuse: No - Advance Directive Resuscitation Status: Full Code Family History Family History: CAD, CVA, DM, Hyperlipidemia, Hypertension, Malignancy Parental Family History Reviewed: Yes Children Family History Reviewed: Yes Sibling(s) Family History Reviewed.: Yes Medication/Allergy Home Medications: Albuterol Sulfate [Proair Hfa Inhalation Aerosol 8.5 gm Mdi] 2 puff IH Q4HP PRN 07/31/17 Aspirin [Aspirin EC] 81 mg PO DAILY 07/31/17 Atorvastatin Calcium [Lipitor 40 mg Tablet] 40 mg PO DAILY 07/31/17 Canagliflozin [Invokana] 100 mg PO DAILY 07/31/17 Dulaglutide [Trulicity] 1.5 mg SQ TU@1000 07/31/17 Esomeprazole Mag Trihydrate [Nexium] 40 mg PO QPM 07/31/17 Fexofenadine HCl [Patricia] 180 mg PO DAILY 07/31/17 Lisinopril [Prinivil 40 mg Tablet] 40 mg PO DAILY 07/31/17 Metformin HCl [Glucophage] 1,000 mg PO BIDACBS 07/31/17 Mv-Min/Iron/Folic/Calcium/Vitk [Women's Multivitamin Tablet] 1 tab PO DAILY 06/14 Sertraline HCl [Zoloft 50 mg Tablet] 50 mg PO DAILY 07/31/17 Allergies/Adverse Reactions: erythromycin lactobionate [From Erythrocin] Allergy (Severe, Verified 03/16/17 12:29) Influenza Virus Vaccines [Influenza Virus Vaccine] Allergy (Severe, Verified 12:29) sumatriptan [From Imitrex] Allergy (Severe, Verified 03/16/17 12:29) pineapple [Pineapple] Allergy (Unknown, Verified 03/16/17 12:29) Review of Systems Constitutional: ABSENT: chills, fever(s), headache(s), weight gain, weight loss Eyes: ABSENT: visual disturbances Ears: ABSENT: hearing changes Cardiovascular: PRESENT: chest pain. ABSENT: dyspnea on exertion, edema, orthropnea, palpitations Respiratory: ABSENT: cough, hemoptysis Gastrointestinal: ABSENT: abdominal pain, constipation, diarrhea, hematemesis, hematochezia, nausea, vomiting Genitourinary: ABSENT: dysuria, hematuria Musculoskeletal: ABSENT: joint swelling Integumentary: ABSENT: rash, wounds Neurological: ABSENT: abnormal gait, abnormal speech, confusion, dizziness, focal weakness, syncope Psychiatric: ABSENT: anxiety, depression, homidical ideation, suicidal ideation Endocrine: ABSENT: cold intolerance, heat intolerance, menstrual abnormalities, polydipsia, polyuria Hematologic/Lymphatic: ABSENT: easy bleeding, easy bruising, lymphadenopathy Physical Exam Vital Signs: Temp Pulse Resp BP Pulse Ox 98.0 F 79 17 112/64 95 08/01/17 19:38 08/01/17 19:38 08/01/17 19:38 08/01/17 19:38 08/01/17 19:38 Intake & Output 07/31/17 08/01/17 08/02/17 06:59 06:59 06:59 Intake Total 9 Balance 9 Weight 94.8 kg General appearance: PRESENT: no acute distress, well-developed, well-nourished Head exam: PRESENT: atraumatic, normocephalic Eye exam: PRESENT: conjunctiva pink, EOMI, PERRLA Ear exam: PRESENT: normal external ear exam Mouth exam: PRESENT: moist, tongue midline Neck exam: PRESENT: full ROM. ABSENT: carotid bruit, JVD, lymphadenopathy, thyromegaly Respiratory exam: PRESENT: clear to auscultation alessandra Cardiovascular exam: PRESENT: RRR, +S1, +S2 Pulses: PRESENT: normal dorsalis pedis pul, +2 pedal pulses bilateral Vascular exam: PRESENT: normal capillary refill GI/Abdominal exam: PRESENT: normal bowel sounds, soft Rectal exam: PRESENT: deferred Neurological exam: PRESENT: alert, awake, oriented to person, oriented to place , oriented to time, oriented to situation, CN II-XII grossly intact Psychiatric exam: PRESENT: appropriate affect, normal mood Skin exam: PRESENT: dry, intact, warm Results Laboratory Results: 07/31/17 21:56 07/31/17 21:56 07/31/17 07/31/17 08/01/17 21:56 21:56 00:23 WBC 9.2 RBC 4.34 Hgb 13.5 Hct 39.4 MCV 91 MCH 31.1 MCHC 34.4 RDW 13.3 Plt Count 221 Seg Neutrophils % 48.5 Lymphocytes % 40.8 Monocytes % 8.6 Eosinophils % 0.8 Basophils % 1.3 Absolute Neutrophils 4.4 Absolute Lymphocytes 3.7 Absolute Monocytes 0.8 Absolute Eosinophils 0.1 Absolute Basophils 0.1 Sodium 142.6 Potassium 4.2 Chloride 103 Carbon Dioxide 26 Anion Gap 14 BUN 23 H Creatinine 0.53 Est GFR ( Amer) > 60 Est GFR (Non-Af Amer) > 60 Glucose 208 H Calcium 10.6 H Phosphorus 4.2 Triglycerides Cholesterol LDL Cholesterol Direct VLDL Cholesterol HDL Cholesterol Urine Color YELLOW Urine Appearance CLEAR Urine pH 6.0 Ur Specific Munson 1.029 Urine Protein NEGATIVE Urine Glucose (UA) >=500 H Urine Ketones NEGATIVE Urine Blood NEGATIVE Urine Nitrite NEGATIVE Ur Leukocyte Esterase NEGATIVE Urine WBC (Auto) 1 Urine RBC (Auto) 3 08/01/17 03:45 WBC RBC Hgb Hct MCV MCH MCHC RDW Plt Count Seg Neutrophils % Lymphocytes % Monocytes % Eosinophils % Basophils % Absolute Neutrophils Absolute Lymphocytes Absolute Monocytes Absolute Eosinophils Absolute Basophils Sodium Potassium Chloride Carbon Dioxide Anion Gap BUN Creatinine Est GFR ( Amer) Est GFR (Non-Af Amer) Glucose Calcium Phosphorus Triglycerides 227 H Cholesterol 123.03 LDL Cholesterol Direct 56 VLDL Cholesterol 45.4 H HDL Cholesterol 35 L Urine Color Urine Appearance Urine pH Ur Specific Munson Urine Protein Urine Glucose (UA) Urine Ketones Urine Blood Urine Nitrite Ur Leukocyte Esterase Urine WBC (Auto) Urine RBC (Auto) 07/31/17 08/01/17 08/01/17 21:56 03:45 10:47 Creatine Kinase CK-MB (CK-2) 0.35 0.32 0.77 Troponin I < 0.012 < 0.012 < 0.012 08/01/17 08/01/17 17:42 17:42 Creatine Kinase 211 H CK-MB (CK-2) 2.58 Troponin I < 0.012 Impressions: Chest X-Ray 07/31/17 17:03 IMPRESSION: NO ACUTE RADIOGRAPHIC FINDING IN THE CHEST. Assessment & Plan - Diagnosis (1) Unstable angina Is this a current diagnosis for this admission?: Yes Plan: Symptoms suspicious for unstable angina, the d-dimer less than 0.27, the pretest probability for PE is extremely low, no need for CTA chest at this point in time. pharmacological stress test is contraindicated in a patient with suspected unstable angina, so far all enzymes are negative for acute MT, she may need to have cardiac catheterization. 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 use: without test desk operator use Diabetes mellitus complication status: with neurologic complications Diabetes mellitus complication detail: with polyneuropathy Qualified Code(s): E11.42 - Type 2 diabetes mellitus with diabetic polyneuropathy Is this a current diagnosis for this admission?: Yes (3) History of Guillain-Mildred syndrome Is this a current diagnosis for this admission?: Yes (4) Hyperlipidemia Qualifiers: Hyperlipidemia type: pure hypercholesterolemia Qualified Code(s): E78.00 - Pure hypercholesterolemia, unspecified; E78.0 - Pure hypercholesterolemia Is this a current diagnosis for this admission?: Yes
[2017-08-02 01:31] LABS: HEMATOCRIT 35.9 % (36.0-47.0); HEMOGLOBIN 12.3 g/dL (12.0-15.5); MEAN CORPUSCULAR HEMOGLOBIN 31.5 pg (27.0-33.4); MEAN CORPUSCULAR HGB CONC 34.2 g/dL (32.0-36.0); MEAN CORPUSCULAR VOLUME 92 fl (80-97); PLATELET COUNT 189 10^3/uL (150-450); RED CELL DISTRIBUTION WIDTH 13.1 % (11.5-14.0); WHITE BLOOD COUNT 7.9 10^3/uL (4.0-10.5)
[2017-08-02 02:00] LABS: CREATINE KINASE MB 1.66 ng/mL (<4.55); TROPONIN I < 0.012 ng/mL
[2017-08-02] MEDS ORDERED: ACETAMINOPHEN 325 MG TABLET ONE (07:37)
[2017-08-02] MEDS: INSULIN LISPRO 100 UNIT/ML 3 ML VIAL SUBCUT PRN ×3 (07:37→16:41)
[2017-08-02] MEDS: METFORMIN HCL 500 MG TABLET PO SCH ×2 (07:37→16:44)
[2017-08-02] MEDS: ATORVASTATIN CALCIUM 40 MG TABLET PO SCH (09:59)
[2017-08-02] MEDS: ENOXAPARIN SODIUM INJ 100 MG/1 ML DISP.SYRIN SUBCUT SCH (09:59)
[2017-08-02] MEDS: MULTIVITAMIN TABLET PO SCH (10:00)
[2017-08-02] MEDS: ASPIRIN 81 MG TABLET, CHEWABLE PO SCH (10:00)
[2017-08-02] MEDS: SERTRALINE HCL 50 MG TABLET PO SCH (10:00)
[2017-08-02] MEDS: CLOPIDOGREL BISULFATE 75 MG TABLET PO SCH (10:00)
[2017-08-02] MEDS: LISINOPRIL 10 MG TABLET PO SCH (10:00)
[2017-08-02] MEDS: LORATADINE 10 MG TABLET PO SCH (10:00)
[2017-08-02] MEDS: NITROGLYCERIN/D5W 50 MG/250 ML RTUINJ IV PRN (10:02)
[2017-08-02] MEDS ORDERED: ACETAMINOPHEN 325 MG TABLET PO PRN (11:56)
[2017-08-02 15:15] LABS: TROPONIN I < 0.012 ng/mL
[2017-08-02] MEDS: LANSOPRAZOLE 30 MG TAB.RAP.DR PO SCH (16:49)
--- NOTE | 2017-08-02 18:04 | PDOC PROGRESS REPORT ---
Subjective Progress Note for:: 08/02/17 Subjective:: She continues to complain of chest pressure, the blood pressure is low today, the IV nitroglycerin is discontinued, I discussed the case with Dr. Barba cardiology, he suggested that patient needed to undergo cardiac catheterization , she prefers to be transferred to [place] because of her son stays in [place]. Consultation will be obtained from Dr. BARBA, I am not familiar with the bottom wheeler in [place], I am more familiar with the bottom wheeler in [place]. Reason For Visit: UNSTABLE ANGINA Physical Exam Vital Signs: Temp Pulse Resp BP Pulse Ox 98.4 F 93 17 100/62 99 08/02/17 15:24 08/02/17 15:24 08/02/17 15:24 08/02/17 15:24 08/02/17 15:24 Intake & Output 08/01/17 08/02/17 08/03/17 06:59 06:59 06:59 Intake Total 233 268 Balance 233 268 Weight 93.1 kg General appearance: PRESENT: no acute distress Eye exam: PRESENT: PERRLA Respiratory exam: PRESENT: clear to auscultation alessandra Cardiovascular exam: PRESENT: +S1, +S2 GI/Abdominal exam: PRESENT: soft Neurological exam: PRESENT: alert Results Laboratory Results: 08/02/17 01:22 07/31/17 21:56 08/02/17 01:22 WBC 7.9 RBC 3.90 Hgb 12.3 Hct 35.9 L MCV 92 MCH 31.5 MCHC 34.2 RDW 13.1 Plt Count 189 07/31/17 08/01/17 08/01/17 21:56 03:45 10:47 Creatine Kinase CK-MB (CK-2) 0.35 0.32 0.77 Troponin I < 0.012 < 0.012 < 0.012 08/01/17 08/01/17 08/02/17 17:42 17:42 01:22 Creatine Kinase 211 H 170 H CK-MB (CK-2) 2.58 Troponin I < 0.012 08/02/17 08/02/17 08/02/17 01:22 14:19 14:19 Creatine Kinase 107 CK-MB (CK-2) 1.66 0.90 Troponin I < 0.012 < 0.012 Impressions: Chest X-Ray 07/31/17 17:03 IMPRESSION: NO ACUTE RADIOGRAPHIC FINDING IN THE CHEST. 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 insulin use: without technician terminal and repeater use Diabetes mellitus complication status: with neurologic complications Diabetes mellitus complication detail: with polyneuropathy Qualified Code(s): E11.42 - Type 2 diabetes mellitus with diabetic polyneuropathy Is this a current diagnosis for this admission?: Yes (3) History of Guillain-Picacho syndrome Is this a current diagnosis for this admission?: Yes (4) Hyperlipidemia Qualifiers: Hyperlipidemia type: pure hypercholesterolemia Qualified Code(s): E78.00 - Pure hypercholesterolemia, unspecified; E78.0 - Pure hypercholesterolemia Is this a current diagnosis for this admission?: Yes
--- NOTE | 2017-08-02 19:25 | XCELERA REPORT ---
[address] [address] Transthoracic Echocardiogram Report Name: KVNG CARRILLO Age: 62 yrs Gender: Female : 1955 Patient Status: Inpatient Patient Location: [address] [place] [address] Study Date: 08/02/2017 08:31 AM Reason For Study: LV Function, size, wall thickness,Valve Function Ordering Physician: KRYSTAL REID Performed By: Jacque Wong Interpretation Summary Technically poor study, only PLAX and PSAX view available, No Apical 4 or 2 chamber views. unable to assess all the LV segments. Normal AV, no , no AR. normal MV except mild MAC., no MR, and no LA enlargement on PLAX. Asymmetric PW hypertrophy, with LV diastolic dysfunction and elev. LVEDP. There is anteroseptal hypokinesis, but not all LV segements were imaged. LVEF normal based on PLAX, no Biplane LVEF available. R heart incomplete assessment, since only PLAX view imaged. MMode/2D Measurements & Calculations RVDd: 2.7 cm LVIDd: 3.5 cm FS: 37.4 % Ao root diam: 2.4 cm IVSd: 0.97 cm LVIDs: 2.2 cm EDV(Teich): 49.7 ml Ao root area: 4.6 cm2 LVPWd: 1.5 cm ESV(Teich): 15.7 ml EF(Teich): 68.5 % LVOT diam: 1.7 cm LVOT area: 2.3 cm2 Doppler Measurements & Calculations MV E max renee: 79.3 cm/sec PA V2 max: 92.8 cm/sec MV A max renee: 94.3 cm/secMV dec slope: 347.4 cm/sec2 PA max P.7 mmHg MV E/A: 0.84 MV dec time: 0.23 sec Left Ventricle The left ventricle is grossly normal size. post wall thickening 14mm, IVS normal thickness. The left ventricle is hyperdynamic. Doppler measurements suggest impaired left ventricular relaxation, which is associated with grade I/IV or mild diastolic dysfunction. B notch suggests elev LVEDP. Not all wall segments were well visualized. anteroseptal wall hypokinesis. No apical views imaged to assess apex, lat wall, inferior wall, or anterior wall. The left ventricular apex is not well visualized. Right Ventricle The right ventricle is normal in size, thickness and function. Atria Right atrium not well visualized secondary to technical limitations. The left atrial size is normal. no apical 4 or 2 chamber views imaged. Mitral Valve There is mild mitral annular calcification. The mitral valve leaflets appear normal. There is no evidence of stenosis, fluttering, or prolapse. There is no evidence of mitral valve prolapse. There is no mitral valve stenosis. There is no mitral regurgitation noted. Aortic Valve The aortic valve is trileaflet. The aortic valve opens well. Cannot exclude aortic valvular vegetation. There is no aortic valve stenosis. No aortic regurgitation is present. Tricuspid Valve The tricuspid valve is not well visualized secondary to technical limitations. There is a trace or physiologic amount of tricuspid regurgitation. Pulmonic Valve There is a trace or physiologic amount of pulmonic regurgitation. Great Vessels The aortic root is normal size. Effusions Small pericardial effusion. I WMSI = 1.13 % Normal = 88 Segments Size X - Cannot 1 - Normal 2 - 3 - Akinetic4 - 1-2 small Interpret Hypokinetic Dyskinetic 3-5 moderate 5 - 6-14 large Aneurysmal 15-16 diffuse : KRYSTAL REID > Jeovany Richard
--- NOTE | 2017-08-02 20:47 | PDOC TRANSFER SUMMARY ---
General Admission Date/PCP: 07/31/17 19:32 Transfer Date: 08/02/17 Accepting Facility: [facility] Resuscitation Status: Full Code - Transfer Diagnosis (1) Unstable angina Is this a current diagnosis for this admission?: Yes (2) Type 2 diabetes mellitus Is this a current diagnosis for this admission?: Yes (3) History of Guillain-Houston syndrome Is this a current diagnosis for this admission?: Yes (4) Hyperlipidemia Is this a current diagnosis for this admission?: Yes - Transfer Medications Home Medications: Albuterol Sulfate [Proair Hfa Inhalation Aerosol 8.5 gm Mdi] 2 puff IH Q4HP PRN 07/31/17 Aspirin [Aspirin EC] 81 mg PO DAILY 07/31/17 Atorvastatin Calcium [Lipitor 40 mg Tablet] 40 mg PO DAILY 07/31/17 Canagliflozin [Invokana] 100 mg PO DAILY 07/31/17 Dulaglutide [Trulicity] 1.5 mg SQ TU@1000 07/31/17 Esomeprazole Mag Trihydrate [Nexium] 40 mg PO QPM 07/31/17 Fexofenadine HCl [Patricia] 180 mg PO DAILY 07/31/17 Lisinopril [Prinivil 40 mg Tablet] 40 mg PO DAILY 07/31/17 Metformin HCl [Glucophage] 1,000 mg PO BIDACBS 07/31/17 Mv-Min/Iron/Folic/Calcium/Vitk [Women's Multivitamin Tablet] 1 tab PO DAILY 06/14 Sertraline HCl [Zoloft 50 mg Tablet] 50 mg PO DAILY 07/31/17 Transfer Medications: Current Medications Acetaminophen (Tylenol 325 Mg Tablet) 650 mg PO Q4HP PRN PRN Reason: PAIN/FEVER Stop: 09/01/17 11:55 Albuterol (Proair Hfa Inhalation Aerosol 8.5 Gm Mdi) 2 puff IH Q4HP PRN PRN Reason: SOB,WHEEZING Stop: 08/30/17 21:34 Aspirin (Aspirin 81 Mg Chewable Tablet) [address] Stop: 08/31/17 09:59 Last Admin: 08/02/17 10:00 Dose: 162 mg Atorvastatin Calcium (Lipitor 40 Mg Tablet) [address] Stop: 08/31/17 09:59 Last Admin: 08/02/17 09:59 Dose: 40 mg Clopidogrel Bisulfate (Plavix 75 Mg Tablet) 75 mg PO DAILY [facility] Stop: 08/31/17 09:59 Last Admin: 08/02/17 10:00 Dose: 75 mg Dextrose (Dextrose Inj 50% Syringe (25 Gm/50 Ml)) 12.5 gm IV PRN PRN; Protocol PRN Reason: FOR BG 50-69 IN ALERT PATIENT Stop: 08/30/17 21:40 Dextrose (Dextrose Inj 50% Syringe (25 Gm/50 Ml)) 25 gm IV PRN PRN; Protocol PRN Reason: PER PROTOCOL Stop: 08/30/17 21:40 Enoxaparin Sodium (Lovenox Inj 100 Mg/1 Ml Disp.Syrin) [address] Stop: 08/30/17 21:59 Last Admin: 08/02/17 09:59 Dose: 95 mg Glucagon (Glucagen Inj 1 Mg Vial) 1 mg IM PRN PRN; Protocol PRN Reason: Evaluate for BG < 70 Stop: 08/30/17 21:40 Glucose (Glutose 40% Gel 15 Gm Tube) 30 gm PO PRN PRN; Protocol PRN Reason: FOR BG < 50 IN ALERT PATIENT Stop: 08/30/17 21:40 Glucose (Glutose 40% Gel 15 Gm Tube) 15 gm PO PRN PRN; Protocol PRN Reason: FOR BG 50-69 IN ALERT PATIENT Stop: 08/30/17 21:40 Insulin Human Lispro (Humalog Insulin 100 Unit/1 Ml 3 Ml Vial) 0 - 12 unit SUBCUT ACHSP PRN; Protocol PRN Reason: PER PROTOCOL Stop: 08/30/17 21:40 Last Admin: 08/02/17 16:41 Dose: 2 unit Lansoprazole (Prevacid 30 Mg Odt Tablet) 30 mg PO QPM [facility] Stop: 08/31/17 17:59 Last Admin: 08/02/17 16:49 Dose: 30 mg Lisinopril (Prinivil 10 Mg Tablet) 40 mg PO DAILY [facility] Stop: 08/31/17 09:59 Last Admin: 08/02/17 10:00 Dose: 40 mg Loratadine (Claritin 10 Mg Tablet) 10 mg PO DAILY [facility] Stop: 08/31/17 09:59 Last Admin: 08/02/17 10:00 Dose: 10 mg Metformin HCl (Glucophage 500 Mg Tablet) 1,000 mg PO BIDACBS [facility] Stop: 08/31/17 07:59 Last Admin: 08/02/17 16:44 Dose: 1,000 mg Multivitamins (Tab-A-Shannan (Multiple Vitamin) Tablet) [address] Stop: 08/31/17 09:59 Last Admin: 08/02/17 10:00 Dose: 1 tab Patient Own Medication (Dulaglutide [Trulicity]) 1.5 mg SQ .TU@[address] Stop: 08/31/17 09:59 Patient Own Medication (Canagliflozin [Invokana]) [address] Stop: 08/31/17 09:59 Sertraline HCl (Zoloft 50 Mg Tablet) [address] Stop: 08/31/17 09:59 Last Admin: 08/02/17 10:00 Dose: 50 mg Sodium Chloride (Saline Flush 2.5 Ml Monoject Prefil Syrin) 2.[address] Stop: 08/30/17 21:59 Last Admin: 08/02/17 16:49 Dose: 2.5 ml - Allergies Allergies/Adverse Reactions: erythromycin lactobionate [From Erythrocin] Allergy (Severe, Verified 03/16/17 12:29) Influenza Virus Vaccines [Influenza Virus Vaccine] Allergy (Severe, Verified 12:29) sumatriptan [From Imitrex] Allergy (Severe, Verified 03/16/17 12:29) pineapple [Pineapple] Allergy (Unknown, Verified 03/16/17 12:29) Hospital Course Hospital Course: Patient was admitted for evaluation of chest pressure, suspicious for ischemic heart disease, 3 sets of cardiac enzymes negative for acute DC. She was managed with antiplatelet, anticoagulant, IV nitroglycerin. She has had 2 nuclear stress test the last 2 years were negative for reversibility to suggest coronary artery disease. Patient case was discussed with Dr. BARBA, he suggested that patient be transfer to [place] for cardiac catheterization. Physical Exam Vital Signs: Temp Pulse Resp BP Pulse Ox 98.4 F 91 17 91/51 L 96 08/02/17 19:25 08/02/17 19:25 08/02/17 19:25 08/02/17 19:25 08/02/17 19:25 Intake & Output 08/01/17 08/02/17 08/03/17 06:59 06:59 06:59 Intake Total 233 468 Balance 233 468 Weight 93.1 kg General appearance: PRESENT: no acute distress, well-developed, well-nourished Head exam: PRESENT: atraumatic, normocephalic Eye exam: PRESENT: conjunctiva pink, EOMI, PERRLA Ear exam: PRESENT: normal external ear exam Mouth exam: PRESENT: moist, tongue midline Respiratory exam: PRESENT: clear to auscultation alessandra Cardiovascular exam: PRESENT: RRR Pulses: PRESENT: normal dorsalis pedis pul Vascular exam: PRESENT: normal capillary refill GI/Abdominal exam: PRESENT: normal bowel sounds, soft Rectal exam: PRESENT: deferred Extremities exam: PRESENT: full ROM Neurological exam: PRESENT: alert, awake, oriented to person, oriented to place , oriented to time, oriented to situation, CN II-XII grossly intact Psychiatric exam: PRESENT: appropriate affect, normal mood Skin exam: PRESENT: dry, intact, warm Results Laboratory Results: 08/02/17 01:22 07/31/17 21:56 08/02/17 01:22 WBC 7.9 RBC 3.90 Hgb 12.3 Hct 35.9 L MCV 92 MCH 31.5 MCHC 34.2 RDW 13.1 Plt Count 189 07/31/17 08/01/17 08/01/17 21:56 03:45 10:47 Creatine Kinase CK-MB (CK-2) 0.35 0.32 0.77 Troponin I < 0.012 < 0.012 < 0.012 08/01/17 08/01/17 08/02/17 17:42 17:42 01:22 Creatine Kinase 211 H 170 H CK-MB (CK-2) 2.58 Troponin I < 0.012 08/02/17 08/02/17 08/02/17 01:22 14:19 14:19 Creatine Kinase 107 CK-MB (CK-2) 1.66 0.90 Troponin I < 0.012 < 0.012 Impressions: Chest X-Ray 07/31/17 17:03 IMPRESSION: NO ACUTE RADIOGRAPHIC FINDING IN THE CHEST.
[2017-08-02 23:09] VITALS: BP 88/67
== END 2017-08-02 22:30 | disposition short-term general hospital (02) ==
LOC: ER 15:35 → EH 19:32 → 3W 08-01 13:06
PROVIDERS: ADMIT Internal Medicine; ATTEND Internal Medicine
DX: I20.0 Unstable angina (principal); E11.65 Type 2 diabetes mellitus with hyperglycemia; E11.42 Type 2 diabetes mellitus with diabetic polyneuropathy; G61.0 Guillain-Barre syndrome; E78.00 Pure hypercholesterolemia, unspecified; F32.9 Major depressive disorder, single episode, unspecified; I10 Essential (primary) hypertension; Z79.899 Other long term (current) drug therapy; Z90.49 Acquired absence of other specified parts of digestive tract; Z98.84 Bariatric surgery status; Z82.49 Family history of ischemic heart disease and other diseases of the circulatory system; Z79.84 Long term (current) use of oral hypoglycemic drugs; Z82.3 Family history of stroke; Z96.651 Presence of right artificial knee joint
CPT/HCPCS: 93005 ×2; 99285; 36415 ×3; 82553 ×3; 82962 ×2; 82550 ×3; 84100; 85025; 85027; 85610; 85730; 80048; 81001; 84484 ×3; 85379; 80061; 93306; 71046; 93010; G0378 ×3; J3490 ×6; J1650 ×3

== ENCOUNTER → 2018-02-08 | Outpatient (CLI) | payer BC ==
[2018-02-08 09:29] LABS: ABSOLUTE EOSINOPHILS # (AUTO) 0.2 10^3/uL (0.0-0.6); ABSOLUTE LYMPHOCYTES (AUTO) 2.6 10^3/uL (0.5-4.7); ABSOLUTE MONOCYTES (AUTO) 0.5 10^3/uL (0.1-1.4); ABSOLUTE NEUT (AUTO) 4.3 10^3/uL (1.7-8.2); BASOPHILS % (AUTO) 0.2 % (0-2); HEMATOCRIT 37.3 % (36.0-47.0); HEMOGLOBIN 12.6 g/dL (12.0-15.5); LYMPHOCYTES % (AUTO) 34.1 % (13-45); MEAN CORPUSCULAR HEMOGLOBIN 30.6 pg (27.0-33.4); MEAN CORPUSCULAR HGB CONC 33.9 g/dL (32.0-36.0); MEAN CORPUSCULAR VOLUME 90 fl (80-97); MONOCYTES % (AUTO) 6.4 % (3-13); PLATELET COUNT 220 10^3/uL (150-450); RED BLOOD COUNT 4.14 10^6/uL (3.72-5.28); RED CELL DISTRIBUTION WIDTH 13.7 % (11.5-14.0); SEGMENTED NEUTROPHILS % (AUTO) 56.3 % (42-78); TOTAL CELLS COUNTED % (AUTO) 100 %; WHITE BLOOD COUNT 7.6 10^3/uL (4.0-10.5)
[2018-02-08 09:55] LABS: ALANINE AMINOTRANSFERASE 34 U/L (9-52); ALBUMIN 4.1 g/dL (3.5-5.0); ALKALINE PHOSPHATASE 96 U/L (38-126); ANION GAP 11 (5-19); ASPARTATE AMINO TRANSFERASE 25 U/L (14-36); BILIRUBIN,DIRECT 0.3 mg/dL (0.0-0.4); BLOOD UREA NITROGEN 14 mg/dL (7-20); CALCIUM 9.5 mg/dL (8.4-10.2); CARBON DIOXIDE 28 mmol/L (22-30); CHLORIDE 102 mmol/L (98-107); CHOLESTEROL 107.95 mg/dL (0-200); GLUCOSE 161 mg/dL (75-110); POTASSIUM 4.8 mmol/L (3.6-5.0); SODIUM 141.4 mmol/L (137-145); TOTAL PROTEIN 6.3 g/dL (6.3-8.2); TRIGLYCERIDES 168 mg/dL (<150)
[2018-02-08 10:04] LABS: UR PRO/CREAT RATIO RESULT 0.1 mg/mg (0.0-0.2); URINE PROTEIN 7.6 mg/dL (<12)
[2018-02-08 10:06] LABS: DIRECT LDL 68 mg/dL (<100)
[2018-02-08 10:10] LABS: FREE T4 (FREE THYROXINE) 0.86 ng/dL (0.78-2.19)
[2018-02-08 10:12] LABS: VLDL CHOLESTEROL 33.6 mg/dL (10-31)
[2018-02-08 10:24] LABS: THYROID STIMULATING HORMONE 2.33 uIU/mL (0.47-4.68)
[2018-02-09 10:38] LABS: MICROALBUMIN URINE <3.0 ug/mL (Not Estab.)
[2018-02-09 17:37] LABS: A/G RATIO 1.8 (0.7-1.7); ALBUMIN 2 3.9 g/dL (2.9-4.4); ALPHA-2-GLOBULIN 2 0.7 g/dL (0.4-1.0); BETA GLOBULINS 0.8 g/dL (0.7-1.3); GAMMA GLOBULIN 0.5 g/dL (0.4-1.8); GLOBULIN TOTAL 2.2 g/dL (2.2-3.9); MONOCLONAL SPIKE Not Observed g/dL (Not Observ); PROTEIN TOTAL SERUM 6.1 g/dL (6.0-8.5)
== END ==
LOC: OD 08:16
PROVIDERS: ATTEND Internal Medicine
DX: E11.42 Type 2 diabetes mellitus with diabetic polyneuropathy (principal)
CPT/HCPCS: 36415; 80053; 80061; 82043; 82570; 83036; 84156; 84165; 84166; 84439; 84443; 85025

== ENCOUNTER → 2018-03-01 | Outpatient (CLI) | payer BC ==
[2018-03-01 15:45] LABS: HEMATOCRIT 36.7 % (36.0-47.0); HEMOGLOBIN 12.5 g/dL (12.0-15.5); MEAN CORPUSCULAR HEMOGLOBIN 30.4 pg (27.0-33.4); MEAN CORPUSCULAR VOLUME 89 fl (80-97); PLATELET COUNT 180 10^3/uL (150-450); RED BLOOD COUNT 4.11 10^6/uL (3.72-5.28); RED CELL DISTRIBUTION WIDTH 13.3 % (11.5-14.0); WHITE BLOOD COUNT 9.1 10^3/uL (4.0-10.5)
[2018-03-01 16:11] LABS: ALANINE AMINOTRANSFERASE 36 U/L (9-52); ALBUMIN 4.1 g/dL (3.5-5.0); ALKALINE PHOSPHATASE 95 U/L (38-126); ANION GAP 12 (5-19); ASPARTATE AMINO TRANSFERASE 27 U/L (14-36); BILIRUBIN,DIRECT 0.2 mg/dL (0.0-0.4); BILIRUBIN,TOTAL 0.8 mg/dL (0.2-1.3); BLOOD UREA NITROGEN 22 mg/dL (7-20); CALCIUM 9.4 mg/dL (8.4-10.2); CARBON DIOXIDE 26 mmol/L (22-30); CHLORIDE 97 mmol/L (98-107); GLUCOSE 135 mg/dL (75-110); POTASSIUM 4.5 mmol/L (3.6-5.0); SODIUM 134.9 mmol/L (137-145); TOTAL PROTEIN 6.3 g/dL (6.3-8.2)
== END ==
LOC: LAB 15:31
PROVIDERS: ATTEND Physician Assistant Surgical
DX: K62.5 Hemorrhage of anus and rectum (principal); R10.814 Left lower quadrant abdominal tenderness
CPT/HCPCS: 36415; 80053; 85027

== ENCOUNTER → 2018-03-01 | Outpatient (CLI) | payer BC ==
--- NOTE | 2018-03-01 15:44 | RADIOLOGY REPORT (SQ) ---
EXAM DESCRIPTION: CT ABD/PELVIS WITH IV ORAL COMPLETED DATE/TIME: 03/01/2018 3:16 pm REASON FOR STUDY: ABDOMINAL TENDERNESS LEFT LOWER QUADRANT/RECTAL BLEEDING R10.814 LEFT LOWER QUADR ANT ABDOMINAL TENDERNESS K62.5 HEMORRHAGE OF ANUS AND RECTUM R19.4 CHANGE IN BOWEL HABIT COMPARISON: None. TECHNIQUE: CT scan of the abdomen and pelvis performed using helical scanning technique with dynamic intravenous contrast injection. Patient drank oral contrast. Images reviewed with lung, soft tissue , and bone windows. Reconstructed coronal and sagittal MPR images reviewed. Delayed images for evalua tion of the urinary system also acquired. All images stored on PACS. All CT scanners at this facility use dose modulation, iterative reconstruction, and/or weight based d osing when appropriate to reduce radiation dose to as low as reasonably achievable (ALARA). [facility]: Dose Right [facility]: CareDose [facility]: Dose Right [facility]: Teradose 4D [facility]: Fetchnotes CONTRAST TYPE AND DOSE: contrast/concentration: Isovue 350.00 mg/ml; Total Contrast Delivered: 100.0 ml; Total Saline Delivered: 72.0 ml RENAL FUNCTION: GFR > 60. RADIATION DOSE: CT Rad equipment meets quality standard of care and radiation dose reduction techniq ues were employed. CTDIvol: 15.1 - 17.2 mGy. DLP: 1548 mGy-cm.. LIMITATIONS: None. FINDINGS: LOWER CHEST: No significant findings. No nodules or infiltrates. Small hiatal hernia LIVER: Normal size. No masses. No dilated ducts. SPLEEN: Normal size. No focal lesions. PANCREAS: No masses. No significant calcifications. No adjacent inflammation or peripancreatic fluid collections. Pancreatic duct not dilated. GALLBLADDER: No identified stones by CT criteria. No inflammatory changes to suggest cholecystitis. ADRENAL GLANDS: No significant masses or asymmetry. RIGHT KIDNEY AND URETER: No solid masses. No significant calcifications. No hydronephrosis or hyd roureter. LEFT KIDNEY AND URETER: No solid masses. No significant calcifications. No hydronephrosis or hydr oureter. AORTA AND VESSELS: No aneurysm. No dissection. Renal arteries, SMA, celiac without stenosis. RETROPERITONEUM: No retroperitoneal adenopathy, hemorrhage or masses. BOWEL AND PERITONEAL CAVITY: Patient drank oral contrast. No CT evidence of bowel obstruction or galen e intraperitoneal air or fluid. Post gastric sleeve procedure. Small hiatal hernia. APPENDIX: Post appendectomy PELVIS: No mass. No free fluid. Normal bladder. Post hysterectomy. ABDOMINAL WALL: No masses. No hernias. BONES: No significant or acute findings. OTHER: No other significant finding. IMPRESSION: NO SIGNIFICANT OR ACUTE FINDING IN THE ABDOMEN OR PELVIS ON CT SCAN WITH IV CONTRAST. TECHNICAL DOCUMENTATION: JOB ID: [id number] Quality ID # [id number]: Final reports with documentation of one or more dose reduction techniques (e.g., Au tomated exposure control, adjustment of the mA and/or kV according to patient size, use of iterative reconstruction technique) 2010 [employer]- All Rights Reserved Reading location - IP/workstation name: [email or web address]
== END ==
LOC: RAD 11:48
PROVIDERS: ATTEND Internal Medicine Gastroenterology
DX: R10.814 Left lower quadrant abdominal tenderness (principal); K62.5 Hemorrhage of anus and rectum; R19.4 Change in bowel habit; R11.0 Nausea
CPT/HCPCS: 74177; 82565

== ENCOUNTER → 2018-06-21 | Outpatient (CLI) | payer BC ==
[2018-06-21 09:02] LABS: ABSOLUTE EOSINOPHILS # (AUTO) 0.2 10^3/uL (0.0-0.6); ABSOLUTE LYMPHOCYTES (AUTO) 2.3 10^3/uL (0.5-4.7); ABSOLUTE MONOCYTES (AUTO) 0.5 10^3/uL (0.1-1.4); ABSOLUTE NEUT (AUTO) 3.2 10^3/uL (1.7-8.2); BASOPHILS % (AUTO) 0.4 % (0-2); EOSINOPHILS % (AUTO) 3.8 % (0-6); HEMATOCRIT 36.3 % (36.0-47.0); HEMOGLOBIN 12.4 g/dL (12.0-15.5); LYMPHOCYTES % (AUTO) 36.5 % (13-45); MEAN CORPUSCULAR HEMOGLOBIN 30.4 pg (27.0-33.4); MEAN CORPUSCULAR HGB CONC 34.2 g/dL (32.0-36.0); MEAN CORPUSCULAR VOLUME 89 fl (80-97); MONOCYTES % (AUTO) 7.6 % (3-13); PLATELET COUNT 203 10^3/uL (150-450); RED BLOOD COUNT 4.09 10^6/uL (3.72-5.28); RED CELL DISTRIBUTION WIDTH 13.9 % (11.5-14.0); SEGMENTED NEUTROPHILS % (AUTO) 51.7 % (42-78); TOTAL CELLS COUNTED % (AUTO) 100 %; WHITE BLOOD COUNT 6.2 10^3/uL (4.0-10.5)
[2018-06-21 09:31] LABS: ALANINE AMINOTRANSFERASE 33 U/L (9-52); ALBUMIN 3.9 g/dL (3.5-5.0); ALKALINE PHOSPHATASE 87 U/L (38-126); ANION GAP 9 (5-19); ASPARTATE AMINO TRANSFERASE 21 U/L (14-36); BILIRUBIN,DIRECT 0.3 mg/dL (0.0-0.4); BILIRUBIN,TOTAL 0.9 mg/dL (0.2-1.3); BLOOD UREA NITROGEN 19 mg/dL (7-20); CALCIUM 9.5 mg/dL (8.4-10.2); CARBON DIOXIDE 26 mmol/L (22-30); CHLORIDE 103 mmol/L (98-107); CHOLESTEROL 86.13 mg/dL (0-200); GLUCOSE 188 mg/dL (75-110); POTASSIUM 4.9 mmol/L (3.6-5.0); TOTAL PROTEIN 6.1 g/dL (6.3-8.2); TRIGLYCERIDES 165 mg/dL (<150); URIC ACID 6.5 mg/dL (2.5-7.5)
[2018-06-21 09:42] LABS: DIRECT LDL 45 mg/dL (<100)
[2018-06-21 09:43] LABS: FREE T4 (FREE THYROXINE) 1.06 ng/dL (0.78-2.19)
[2018-06-21 09:43] LABS: APPEARANCE,URINE SLIGHTLY-CLOUDY; BILIRUBIN,URINE NEGATIVE (NEGATIVE); COLOR,URINE YELLOW; GLUCOSE, URINE >=500 mg/dL (NEGATIVE); KETONES,URINE NEGATIVE (NEGATIVE); LEUKOCYTE ESTERASE,URINE NEGATIVE (NEGATIVE); NITRITE,URINE NEGATIVE (NEGATIVE); PROTEIN,URINE NEGATIVE (NEGATIVE); URINE SPECIFIC GRAVITY 1.028; UROBILINOGEN,URINE NEGATIVE mg/dL (<2.0)
[2018-06-21 09:57] LABS: THYROID STIMULATING HORMONE 1.99 uIU/mL (0.47-4.68)
[2018-06-22 11:38] LABS: MICROALBUMIN URINE <3.0 ug/mL (Not Estab.)
== END ==
LOC: OD 08:08
PROVIDERS: ATTEND Internal Medicine
DX: E11.42 Type 2 diabetes mellitus with diabetic polyneuropathy (principal)
CPT/HCPCS: 36415; 80053; 80061; 81001; 82043; 82570; 83036; 84439; 84443; 84550; 85025

== ENCOUNTER → 2018-12-15 | Outpatient (CLI) | payer BC ==
[2018-12-15 09:58] LABS: ABSOLUTE EOSINOPHILS # (AUTO) 0.2 10^3/uL (0.0-0.6); ABSOLUTE LYMPHOCYTES (AUTO) 2.6 10^3/uL (0.5-4.7); ABSOLUTE MONOCYTES (AUTO) 0.5 10^3/uL (0.1-1.4); ABSOLUTE NEUT (AUTO) 4.1 10^3/uL (1.7-8.2); BASOPHILS % (AUTO) 0.4 % (0-2); EOSINOPHILS % (AUTO) 3.1 % (0-6); HEMATOCRIT 38.1 % (36.0-47.0); HEMOGLOBIN 12.7 g/dL (12.0-15.5); LYMPHOCYTES % (AUTO) 34.9 % (13-45); MEAN CORPUSCULAR HEMOGLOBIN 29.8 pg (27.0-33.4); MEAN CORPUSCULAR HGB CONC 33.2 g/dL (32.0-36.0); MEAN CORPUSCULAR VOLUME 90 fl (80-97); MONOCYTES % (AUTO) 6.8 % (3-13); PLATELET COUNT 212 10^3/uL (150-450); RED BLOOD COUNT 4.24 10^6/uL (3.72-5.28); RED CELL DISTRIBUTION WIDTH 14.4 % (11.5-14.0); SEGMENTED NEUTROPHILS % (AUTO) 54.8 % (42-78); TOTAL CELLS COUNTED % (AUTO) 100 %; WHITE BLOOD COUNT 7.4 10^3/uL (4.0-10.5)
[2018-12-15 10:02] LABS: APPEARANCE,URINE SLIGHTLY-CLOUDY; BILIRUBIN,URINE NEGATIVE (NEGATIVE); COLOR,URINE YELLOW; GLUCOSE, URINE >=500 mg/dL (NEGATIVE); KETONES,URINE NEGATIVE (NEGATIVE); LEUKOCYTE ESTERASE,URINE SMALL (NEGATIVE); NITRITE,URINE NEGATIVE (NEGATIVE); PROTEIN,URINE NEGATIVE (NEGATIVE); URINE SPECIFIC GRAVITY 1.023; UROBILINOGEN,URINE NEGATIVE mg/dL (<2.0)
[2018-12-15 10:15] LABS: ALBUMIN 4.1 g/dL (3.5-5.0); ALKALINE PHOSPHATASE 92 U/L (38-126); ANION GAP 8 (5-19); ASPARTATE AMINO TRANSFERASE 24 U/L (14-36); BILIRUBIN,DIRECT 0.1 mg/dL (0.0-0.4); BILIRUBIN,TOTAL 0.7 mg/dL (0.2-1.3); BLOOD UREA NITROGEN 18 mg/dL (7-20); CALCIUM 9.4 mg/dL (8.4-10.2); CARBON DIOXIDE 28 mmol/L (22-30); CHLORIDE 103 mmol/L (98-107); CHOLESTEROL 98.93 mg/dL (0-200); GLUCOSE 166 mg/dL (75-110); POTASSIUM 5.3 mmol/L (3.6-5.0); TOTAL PROTEIN 6.5 g/dL (6.3-8.2); TRIGLYCERIDES 141 mg/dL (<150); URIC ACID 6.6 mg/dL (2.5-7.5)
[2018-12-15 10:26] LABS: DIRECT LDL 54 mg/dL (<100)
[2018-12-15 10:32] LABS: FREE T4 (FREE THYROXINE) 0.95 ng/dL (0.78-2.19)
[2018-12-15 10:46] LABS: THYROID STIMULATING HORMONE 2.02 uIU/mL (0.47-4.68)
[2018-12-17 01:36] LABS: CREATININE URINE 46.5 mg/dL (Not Estab.)
[2018-12-17 08:38] LABS: MICROALBUMIN URINE <3.0 ug/mL (Not Estab.)
== END ==
LOC: OD 09:01
PROVIDERS: ATTEND Internal Medicine
DX: E11.42 Type 2 diabetes mellitus with diabetic polyneuropathy (principal)
CPT/HCPCS: 36415; 80053; 80061; 81001; 82043; 82570; 83036; 84439; 84443; 84550; 85025

== ENCOUNTER → 2019-07-02 | Outpatient (CLI) | payer BC, MEDICARE, OTHER ==
[2019-07-02 09:03] LABS: ABSOLUTE BASOPHILS # (AUTO) 0.1 10^3/uL (0.0-0.2); ABSOLUTE EOSINOPHILS # (AUTO) 0.3 10^3/uL (0.0-0.6); ABSOLUTE LYMPHOCYTES (AUTO) 2.6 10^3/uL (0.5-4.7); ABSOLUTE MONOCYTES (AUTO) 0.6 10^3/uL (0.1-1.4); ABSOLUTE NEUT (AUTO) 5.1 10^3/uL (1.7-8.2); BASOPHILS % (AUTO) 0.6 % (0-2); EOSINOPHILS % (AUTO) 3.1 % (0-6); HEMATOCRIT 37.8 % (36.0-47.0); HEMOGLOBIN 12.9 g/dL (12.0-15.5); LYMPHOCYTES % (AUTO) 30.7 % (13-45); MEAN CORPUSCULAR HEMOGLOBIN 30.4 pg (27.0-33.4); MEAN CORPUSCULAR VOLUME 89 fl (80-97); MONOCYTES % (AUTO) 6.6 % (3-13); PLATELET COUNT 206 10^3/uL (150-450); RED BLOOD COUNT 4.24 10^6/uL (3.72-5.28); TOTAL CELLS COUNTED % (AUTO) 100 %; WHITE BLOOD COUNT 8.6 10^3/uL (4.0-10.5)
[2019-07-02 09:06] LABS: APPEARANCE,URINE SLIGHTLY-CLOUDY; BILIRUBIN,URINE NEGATIVE (NEGATIVE); COLOR,URINE YELLOW; GLUCOSE, URINE >=500 mg/dL (NEGATIVE); KETONES,URINE NEGATIVE (NEGATIVE); LEUKOCYTE ESTERASE,URINE TRACE (NEGATIVE); NITRITE,URINE NEGATIVE (NEGATIVE); PROTEIN,URINE NEGATIVE (NEGATIVE); URINE SPECIFIC GRAVITY 1.027; UROBILINOGEN,URINE NEGATIVE mg/dL (<2.0)
[2019-07-02 09:15] LABS: ALBUMIN 4.4 g/dL (3.5-5.0); ALKALINE PHOSPHATASE 100 U/L (38-126); ANION GAP 10 (5-19); ASPARTATE AMINO TRANSFERASE 34 U/L (14-36); BILIRUBIN,TOTAL 0.8 mg/dL (0.2-1.3); BLOOD UREA NITROGEN 27 mg/dL (7-20); CALCIUM 9.7 mg/dL (8.4-10.2); CARBON DIOXIDE 25 mmol/L (22-30); CHLORIDE 103 mmol/L (98-107); GLUCOSE 184 mg/dL (75-110); POTASSIUM 4.5 mmol/L (3.6-5.0); TOTAL PROTEIN 6.7 g/dL (6.3-8.2); URIC ACID 6.2 mg/dL (2.5-7.5)
[2019-07-02 09:34] LABS: FREE T4 (FREE THYROXINE) 1.06 ng/dL (0.78-2.19)
[2019-07-02 09:48] LABS: THYROID STIMULATING HORMONE 1.17 uIU/mL (0.47-4.68)
[2019-07-03 07:38] LABS: CREATININE URINE 66.6 mg/dL (Not Estab.); MICROALBUMIN URINE <3.0 ug/mL (Not Estab.)
== END ==
LOC: OD 07:22
PROVIDERS: ATTEND Internal Medicine
DX: E11.42 Type 2 diabetes mellitus with diabetic polyneuropathy (principal); R06.02 Shortness of breath
CPT/HCPCS: 36415; 80053; 81001; 82043; 82570; 83036; 83880; 84439; 84443; 84550; 85025; 85379

== ENCOUNTER 2019-08-28 13:02 | Observation (INO) | payer MEDICARE, OTHER ==
[2019-08-28 13:45] LABS: ABSOLUTE BASOPHILS # (AUTO) 0.1 10^3/uL (0.0-0.2); ABSOLUTE EOSINOPHILS # (AUTO) 0.2 10^3/uL (0.0-0.6); ABSOLUTE LYMPHOCYTES (AUTO) 2.8 10^3/uL (0.5-4.7); ABSOLUTE MONOCYTES (AUTO) 0.5 10^3/uL (0.1-1.4); ABSOLUTE NEUT (AUTO) 3.7 10^3/uL (1.7-8.2); EOSINOPHILS % (AUTO) 2.1 % (0-6); HEMATOCRIT 37.1 % (36.0-47.0); HEMOGLOBIN 12.5 g/dL (12.0-15.5); LYMPHOCYTES % (AUTO) 38.2 % (13-45); MEAN CORPUSCULAR HEMOGLOBIN 30.4 pg (27.0-33.4); MEAN CORPUSCULAR HGB CONC 33.6 g/dL (32.0-36.0); MEAN CORPUSCULAR VOLUME 90 fl (80-97); MONOCYTES % (AUTO) 7.3 % (3-13); PLATELET COUNT 174 10^3/uL (150-450); RED BLOOD COUNT 4.11 10^6/uL (3.72-5.28); RED CELL DISTRIBUTION WIDTH 14.3 % (11.5-14.0); SEGMENTED NEUTROPHILS % (AUTO) 51.4 % (42-78); TOTAL CELLS COUNTED % (AUTO) 100 %; WHITE BLOOD COUNT 7.2 10^3/uL (4.0-10.5)
--- NOTE | 2019-08-28 14:00 | RADIOLOGY REPORT (SQ) ---
EXAM DESCRIPTION: CHEST SINGLE VIEW IMAGES COMPLETED DATE/TIME: 08/28/2019 1:51 pm REASON FOR STUDY: cp/sob COMPARISON: 07/31/2017 EXAM PARAMETERS: NUMBER OF VIEWS: One view. TECHNIQUE: Single frontal radiographic view of the chest acquired. RADIATION DOSE: NA LIMITATIONS: None. FINDINGS: LUNGS AND PLEURA: No opacities, masses or pneumothorax. No pleural effusion. MEDIASTINUM AND HILAR STRUCTURES: No masses. Contour normal. HEART AND VASCULAR STRUCTURES: Heart normal in size. Normal vasculature. BONES: No acute findings. HARDWARE: None in the chest. OTHER: No other significant finding. IMPRESSION: NO ACUTE RADIOGRAPHIC FINDING IN THE CHEST. TECHNICAL DOCUMENTATION: JOB ID: [id number] 2010 [employer]- All Rights Reserved Reading location - IP/workstation name: [email or web address]
[2019-08-28 14:06] LABS: ANION GAP 11 (5-19); BLOOD UREA NITROGEN 26 mg/dL (7-20); CALCIUM 9.5 mg/dL (8.4-10.2); CARBON DIOXIDE 21 mmol/L (22-30); CHLORIDE 103 mmol/L (98-107); GLUCOSE 237 mg/dL (75-110)
[2019-08-28] MEDS ORDERED: NORMAL SALINE 1000 ML 1,000 ML IV ONE (14:55)
--- NOTE | 2019-08-28 15:40 | ER Document Report ---
ED Cardiac - General Chief Complaint: Chest Pain Stated Complaint: CHEST PAIN/FEVER Time Seen by Provider: 08/28/19 13:26 Primary Care Provider: KRYSTAL REID MD [Primary Care Provider] - Follow up as needed Mode of Arrival: Medic Information source: Patient TRAVEL OUTSIDE OF THE [place] IN LAST 30 DAYS: No - HPI Notes: Patient reports that she had the sudden onset of chest pain about 3 AM this morning. It was right-sided and substernal. She states that it feels like "somebody punched me in the chest". She states it was 5 out of 5 in intensity. It is been constant. She has tried aspirin and nitroglycerin with no s ignificant relief. She states she had fever up to 99 at home. She states she is also had some nausea and some loose stool at home as well. She states she has no known covert virus exposures. She states she had similar pain several years ago and was transferred to [place] where she had a negative catheterization. - Related Data Allergies/Adverse Reactions: erythromycin lactobionate [From Erythrocin] Allergy (Severe, Verified 03/16/17 12:29) Influenza Virus Vaccines [Influenza Virus Vaccine] Allergy (Severe, Verified 03/16/17 12:29) sumatriptan [From Imitrex] Allergy (Severe, Verified 03/16/17 12:29) pineapple [Pineapple] Allergy (Unknown, Verified 03/16/17 12:29) Past Medical History - General Information source: Patient - Social History Smoking Status: Former Smoker Frequency of alcohol use: None Drug Abuse: None Family History: CAD, CVA, DM, Hyperlipidemia, Hypertension, Malignancy - Past Medical History Cardiac Medical History: Reports: Hx Hypercholesterolemia - meds to protect kidneys, Hx Hypertension - meds to protect kidneys Pulmonary Medical History: Denies: Hx Tuberculosis Endocrine Medical History: Reports: Hx Diabetes Mellitus Type 2 Renal/ Medical History: Denies: Hx Peritoneal Dialysis GI Medical History: Reports: Hx Gastroesophageal Reflux Disease Musculoskeletal Medical History: Reports Hx Arthritis, Reports Hx Musculoskeletal Deformity, Reports Hx Musculoskeletal Trauma Psychiatric Medical History: Reports: Hx Depression - zoloft Traumatic Medical History: Reports: Hx Fractures Past Surgical History: Reports: Hx Adenoidectomy, Hx Appendectomy, Hx Cardiac Catheterization - 2018 no stents, Hx Gastric Bypass Surgery - Gastric sleeve, Hx Hysterectomy, Hx Nose Surgery - For fractured nose, Hx Oral Surgery - [place] teeth, Hx Orthopedic Surgery - orif left tibia and foot, Right knee replacement, Hx Tonsillectomy - Immunizations Hx Diphtheria, Pertussis, Tetanus Vaccination: Yes Review of Systems - Review of Systems Constitutional: Malaise, Recent illness. denies: Chills Cardiovascular: Chest pain. denies: Palpitations Respiratory: Short of breath. denies: Cough -: Yes All other systems reviewed and negative Physical Exam - Vital signs Vitals: Temp Resp BP Pulse Ox 99.1 F 13 133/70 H 99 08/28/19 13:18 08/28/19 13:18 08/28/19 13:18 08/28/19 13:18 Interpretation: Normal - General General appearance: Appears well, Alert - HEENT Head: Normocephalic, Atraumatic Eyes: Normal Pupils: PERRL - Respiratory Respiratory status: No respiratory distress Chest status: Nontender Breath sounds: Normal Chest palpation: Normal - Cardiovascular Rhythm: Regular Heart sounds: Normal auscultation Murmur: No - Abdominal Inspection: Normal Distension: No distension Bowel sounds: Normal Tenderness: Nontender Organomegaly: No organomegaly - Back Back: Normal, Nontender - Extremities General upper extremity: Normal inspection, Nontender, Normal color, Normal ROM, Normal temperature General lower extremity: Normal inspection, Nontender, Normal color, Normal ROM, Normal temperature, Normal weight bearing. No: Nettie's sign - Neurological Neuro grossly intact: Yes Cognition: Normal Orientation: AAOx4 [place] Coma Scale Eye Opening: Spontaneous [place] Coma Scale Verbal: Oriented [place] Coma Scale Motor: Obeys Commands [place] Coma Scale Total: 15 Speech: Normal Motor strength normal: LUE, RUE, LLE, RLE Sensory: Normal - Psychological Associated symptoms: Normal affect, Normal mood - Skin Skin Temperature: Warm Skin Moisture: Dry Skin Color: Normal Course - Re-evaluation Re-evalutation: 08/28/19 15:39 Patient presents with chest pain that does not seem to have been cardiac. She has had the pain constantly since 3 AM but has no changes on EKG. She has stable vitals. She does not appear in distress. Chest x-ray is unremarkable. Labs are also unremarkable. I called and discussed the case with the patient's primary care doctor Dr. Fernando Henderson. He states that if repeat testing is normal he will see the patient in the office. This seems like a reasonable option at this time. - Vital Signs Vital signs: Temp Pulse Resp BP Pulse Ox 99.1 F 17 96/81 L 96 08/28/19 13:18 08/28/19 14:01 08/28/19 14:00 08/28/19 14:01 - Laboratory Result Diagrams: 08/28/19 13:30 08/28/19 13:30 Laboratory results interpreted by me: 08/28/19 08/28/19 13:30 13:30 RDW 14.3 H Sodium 134.9 L Carbon Dioxide 21 L BUN 26 H Glucose 237 H - Diagnostic Test Radiology reviewed: Image reviewed, Reports reviewed - EKG Interpretation by Me EKG shows normal: Sinus rhythm Rate: Normal Rhythm: NSR [place]/QRS: No: Right axis deviation, Left axis deviation Discharge - Discharge Clinical Impression: Chest pain Qualifiers: Chest pain type: unspecified Qualified Code(s): R07.9 - Chest pain, unspecified Condition: Stable Disposition: OTHER Referrals: KRYSTAL REID MD [Primary Care Provider] - Follow up as needed
--- NOTE | 2019-08-28 17:07 | RADIOLOGY REPORT (SQ) ---
EXAM DESCRIPTION: CTA CHEST IMAGES COMPLETED DATE/TIME: 08/28/2019 4:49 pm REASON FOR STUDY: chest pain COMPARISON: None. TECHNIQUE: CT scan of the chest performed using helical scanning technique with dynamic intravenous contrast injection. Images reviewed with lung, soft tissue and bone windows. Reconstructed coronal and sagittal MPR images reviewed. Additional 3 dimensional post-processing performed to develop Maximal Intensity Projection images (ME P). All images stored on PACS. All CT scanners at this facility use dose modulation, iterative reconstruction, and/or weight based d osing when appropriate to reduce radiation dose to as low as reasonably achievable (ALARA). [facility]: Dose Right [facility]: CareDose [facility]: Dose Right [facility]: Teradose 4D [facility]: Inspirotec CONTRAST TYPE AND DOSE: contrast/concentration: Isovue 350.00 mmol/ml; Total Contrast Delivered: 68. 0 ml; Total Saline Delivered: 80.0 ml Contrast bolus adequate for pulmonary arteries and aorta. RENAL FUNCTION: BUN 26 creatinine 0.66 RADIATION DOSE: CT Rad equipment meets quality standard of care and radiation dose reduction techniq ues were employed. CTDIvol: 19.8 - 32.4 mGy. DLP: 1218 mGy-cm. . LIMITATIONS: None. FINDINGS: LUNGS AND PLEURA: No masses, infiltrates, or pneumothorax. No pleural effusions or pleura l calcifications. AORTA AND GREAT VESSELS: No aneurysm. No dissection. HEART: No pericardial effusion. No significant coronary artery calcifications. PULMONARY ARTERIES: No emboli visualized in the main pulmonary arteries or the segmental branches. HILAR AND MEDIASTINAL STRUCTURES: No identified masses or abnormal nodes. HARDWARE: None in the chest. UPPER ABDOMEN: No significant findings. Limited exam. THYROID AND OTHER SOFT TISSUES: No masses. No adenopathy. BONES: No acute or significant finding. 3D MIPS: Confirm above findings. OTHER: No other significant finding. IMPRESSION: There is no pulmonary embolus. There is no aortic aneurysm or dissection. No acute fin ding in the thorax. COMMENT: Quality ID # [id number]: Final reports with documentation of one or more dose reduction techniques (e.g., Automated exposure control, adjustment of the mA and/or kV according to patient size, use of iterative reconstruction technique) TECHNICAL DOCUMENTATION: JOB ID: [id number] 2010 [employer]- All Rights Reserved Reading location - IP/workstation name: [email or web address]
--- NOTE | 2019-08-28 18:27 | ER Document Report ---
Doctor's Note Notes: 08/28/19 18:26 At time of reevaluation patient is resting comfortably in hospital bed I reviewed the negative troponins and negative CAT scan of her chest however after discussion patient states she is still uncomfortable with discharge home because of the chest pain. I spoke with her primary physician Dr Wayne" who is agreeable with admission to [facility]. Patient will be admitted under observation secondary to chest pain.
[2019-08-28] MEDS ORDERED: DEXTROSE 50%-WATER 25 GM/50 ML DISP.SYRIN IV PRN ×2 (20:13)
[2019-08-28] MEDS ORDERED: GLUCAGON,HUMAN RECOMB 1 MG INJ IM PRN (20:13)
[2019-08-28] MEDS ORDERED: DEXTROSE 40% GEL 15 GM TUBE PO PRN ×2 (20:13)
--- NOTE | 2019-08-28 21:55 | EKG REPORT ---
SEVERITY:- ABNORMAL ECG - RIGHT AXIS DEVIATION LOW VOLTAGE IN FRONTAL LEADS BORDERLINE R WAVE PROGRESSION, ANTERIOR LEADS BORDERLINE T ABNORMALITIES, ANTERIOR LEADS SINUS RHYTHM : Confirmed by: Margarette Del Rio MD 28-Aug-2019 21:54:54
--- NOTE | 2019-08-28 22:00 | EKG REPORT ---
SEVERITY:- DEFECTIVE ECG - NONSPECIFIC INTRAVENTRICULAR CONDUCTION DELAY PROBABLE INFERIOR INFARCT, AGE INDETERMINATE ANTERIOR INFARCT, OLD SINUS RHYTHM WITH BASELINE ARTIFACT : Confirmed by: Margarette Del Rio MD 28-Aug-2019 21:59:53
[2019-08-28] MEDS: ENOXAPARIN SODIUM INJ 40 MG/0.4 ML DISP.SYRIN SUBCUT SCH (22:21)
[2019-08-28] MEDS: INSULIN LISPRO 100 UNIT/ML 3 ML VIAL SUBCUT SCH (22:21)
[2019-08-28 22:55] LABS: PHOSPHORUS 3.3 mg/dL (2.5-4.5)
[2019-08-28 23:13] LABS: TROPONIN I < 0.012 ng/mL
[2019-08-29 05:29] LABS: ABSOLUTE EOSINOPHILS # (AUTO) 0.2 10^3/uL (0.0-0.6); ABSOLUTE LYMPHOCYTES (AUTO) 2.9 10^3/uL (0.5-4.7); ABSOLUTE MONOCYTES (AUTO) 0.5 10^3/uL (0.1-1.4); BASOPHILS % (AUTO) 0.3 % (0-2); EOSINOPHILS % (AUTO) 3.1 % (0-6); HEMATOCRIT 35.4 % (36.0-47.0); HEMOGLOBIN 11.8 g/dL (12.0-15.5); LYMPHOCYTES % (AUTO) 43.6 % (13-45); MEAN CORPUSCULAR HEMOGLOBIN 30.2 pg (27.0-33.4); MEAN CORPUSCULAR HGB CONC 33.5 g/dL (32.0-36.0); MEAN CORPUSCULAR VOLUME 90 fl (80-97); MONOCYTES % (AUTO) 7.3 % (3-13); PLATELET COUNT 151 10^3/uL (150-450); RED BLOOD COUNT 3.93 10^6/uL (3.72-5.28); RED CELL DISTRIBUTION WIDTH 14.2 % (11.5-14.0); SEGMENTED NEUTROPHILS % (AUTO) 45.7 % (42-78); TOTAL CELLS COUNTED % (AUTO) 100 %; WHITE BLOOD COUNT 6.6 10^3/uL (4.0-10.5)
[2019-08-29 05:55] LABS: ALBUMIN 3.5 g/dL (3.5-5.0); ALKALINE PHOSPHATASE 74 U/L (38-126); ANION GAP 6 (5-19); ASPARTATE AMINO TRANSFERASE 36 U/L (14-36); BLOOD UREA NITROGEN 19 mg/dL (7-20); CALCIUM 8.9 mg/dL (8.4-10.2); CARBON DIOXIDE 25 mmol/L (22-30); CHLORIDE 105 mmol/L (98-107); GLUCOSE 136 mg/dL (75-110); POTASSIUM 4.2 mmol/L (3.6-5.0); TOTAL PROTEIN 5.7 g/dL (6.3-8.2)
[2019-08-29 06:06] LABS: CREATINE KINASE MB 0.81 ng/mL (<4.55)
[2019-08-29 06:10] LABS: TROPONIN I < 0.012 ng/mL
[2019-08-29] MEDS: ENOXAPARIN SODIUM INJ 40 MG/0.4 ML DISP.SYRIN SUBCUT SCH (09:22)
[2019-08-29] MEDS: INSULIN LISPRO 100 UNIT/ML 3 ML VIAL SUBCUT SCH ×3 (09:22→16:49)
[2019-08-29 10:23] LABS: CREATINE KINASE MB 0.73 ng/mL (<4.55)
[2019-08-29 10:26] LABS: TROPONIN I < 0.012 ng/mL
[2019-08-29] MEDS ORDERED: METFORMIN HCL 500 MG TABLET PO SCH (16:00)
[2019-08-29] MEDS ORDERED: BUSPIRONE HCL 10 MG TABLET PO SCH (18:00)
--- NOTE | 2019-08-29 18:07 | PDOC H&P ---
History of Present Illness Admission Date/PCP: 08/28/19 19:07 KRYSTAL REID MD History of Present Illness: KVNG CARRILLO is a 64 year old female,She came to emergency room for eval uation of atypical chest pain, in the emergency room CT angiogram was done, it was negative for pulmonary embolism. 3 sets of cardiac enzymes were negative for acute MA. She had coronary angiogram done 2 years ago which was normal Past Medical History Cardiac Medical History: Reports: Hyperlipidema - meds to protect kidneys, Hypertension - meds to protect kidneys Endocrine Medical History: Reports: Diabetes Mellitus Type 2 GI Medical History: Reports: Gastroesophageal Reflux Disease Musculoskeltal Medical History: Reports: Arthritis Psychiatric Medical History: Reports: Depression Past Surgical History Past Surgical History: Reports: Adenoidectomy, Appendectomy, Cardiac Catheterization - 2018 no stents, Gastric Bypass Surgery - Gastric sleeve, Hysterectomy, Orthopedic Surgery - orif left tibia and foot, Right knee replacement, Tonsillectomy Social History Smoking Status: Former Smoker Electronic Cigarette use?: No Frequency of Alcohol Use: None Hx Recreational Drug Use: No Drugs: None Hx Prescription Drug Abuse: No Family History Family History: CAD, CVA, DM, Hyperlipidemia, Hypertension, Malignancy Parental Family History Reviewed: Yes Children Family History Reviewed: Yes Sibling(s) Family History Reviewed.: Yes Medication/Allergy Home Medications: Aspirin [Aspirin EC] 81 mg PO DAILY 07/31/17 Atorvastatin Calcium [Lipitor 40 mg Tablet] 40 mg PO DAILY 07/31/17 Metformin HCl [Glucophage] 1,000 mg PO BIDACBS 07/31/17 Mv-Min/Iron/Folic/Calcium/Vitk [Women's Multivitamin Tablet] 1 tab PO DAILY 07/31/17 Sertraline HCl [Zoloft 50 mg Tablet] 50 mg PO DAILY 07/31/17 Buspirone HCl [Buspar 10 mg Tablet] 10 mg PO BID 08/29/19 Canagliflozin [Invokana] 300 mg PO DAILY 08/29/19 Glipizide [Glucotrol 10 mg Tablet] 10 mg PO DAILY 08/29/19 Lisinopril [Prinivil] 20 mg PO DAILY 08/29/19 Omeprazole 40 mg PO DAILY 08/29/19 Allergies/Adverse Reactions: erythromycin lactobionate [From Erythrocin] Allergy (Severe, Verified 03/16/17 12:29) Influenza Virus Vaccines [Influenza Virus Vaccine] Allergy (Severe, Verified 03/16/17 12:29) sumatriptan [From Imitrex] Allergy (Severe, Verified 03/16/17 12:29) pineapple [Pineapple] Allergy (Unknown, Verified 03/16/17 12:29) Review of Systems Constitutional: ABSENT: chills, fever(s), headache(s), weight gain, weight loss Eyes: ABSENT: visual disturbances Ears: ABSENT: hearing changes Cardiovascular: PRESENT: chest pain Respiratory: ABSENT: cough, hemoptysis Gastrointestinal: ABSENT: abdominal pain, constipation, diarrhea, hematemesis, hematochezia, nausea, vomiting Genitourinary: ABSENT: dysuria, hematuria Musculoskeletal: ABSENT: joint swelling Integumentary: ABSENT: rash, wounds Neurological: ABSENT: abnormal gait, abnormal speech, confusion, dizziness, focal weakness, syncope Psychiatric: ABSENT: anxiety, depression, homidical ideation, suicidal ideation Endocrine: ABSENT: cold intolerance, heat intolerance, menstrual abnormalities, polydipsia, polyuria Hematologic/Lymphatic: ABSENT: easy bleeding, easy bruising, lymphadenopathy Physical Exam Vital Signs: Temp Pulse Resp BP Pulse Ox 98.6 F 75 16 111/63 99 08/29/19 16:32 08/29/19 16:32 08/29/19 16:32 08/29/19 16:32 08/29/19 16:32 Intake & Output 08/28/19 08/29/19 08/30/19 06:59 06:59 06:59 Intake Total 1100 717 Output Total 0 Balance 1100 717 Weight 79.1 kg General appearance: PRESENT: no acute distress Head exam: PRESENT: atraumatic, normocephalic Eye exam: PRESENT: PERRLA Neck exam: PRESENT: full ROM Respiratory exam: PRESENT: clear to auscultation alessandra Cardiovascular exam: PRESENT: RRR, +S1, +S2 Pulses: PRESENT: normal dorsalis pedis pul, +2 pedal pulses bilateral Vascular exam: PRESENT: normal capillary refill GI/Abdominal exam: PRESENT: normal bowel sounds, soft Rectal exam: PRESENT: deferred Neurological exam: PRESENT: alert, CN II-XII grossly intact Psychiatric exam: PRESENT: appropriate affect, normal mood Skin exam: PRESENT: dry, intact, warm Results Laboratory Results: 08/29/19 04:03 07/02/20 04:03 08/28/19 08/29/19 08/29/19 22:07 04:03 04:03 WBC 6.6 RBC 3.93 Hgb 11.8 L Hct 35.4 L MCV 90 MCH 30.2 MCHC 33.5 RDW 14.2 H Plt Count 151 Seg Neutrophils % 45.7 Sodium 136.2 L Potassium 4.2 Chloride 105 Carbon Dioxide 25 Anion Gap 6 BUN 19 Creatinine 0.60 Est GFR ( Amer) > 60 Glucose 136 H Calcium 8.9 Phosphorus 3.3 Magnesium 1.7 Total Bilirubin 1.0 AST 36 Alkaline Phosphatase 74 Total Protein 5.7 L Albumin 3.5 08/28/19 08/28/19 08/28/19 13:30 15:42 22:07 Creatine Kinase 34 CK-MB (CK-2) Troponin I < 0.012 < 0.012 08/28/19 08/29/19 08/29/19 22:07 04:03 04:03 Creatine Kinase 30 CK-MB (CK-2) 1.10 0.81 Troponin I < 0.012 < 0.012 08/29/19 08/29/19 09:46 09:46 Creatine Kinase 26 L CK-MB (CK-2) 0.73 Troponin I < 0.012 Impressions: Chest X-Ray 08/28/19 13:34 IMPRESSION: NO ACUTE RADIOGRAPHIC FINDING IN THE CHEST. Chest/Abdomen CTA 08/28/19 14:56 IMPRESSION: There is no pulmonary embolus. There is no aortic aneurysm or dissection. No acute finding in the thorax. 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
[2019-08-29 18:25] VITALS: BP 126/60
--- NOTE | 2019-08-29 20:21 | PDOC DISCHARGE SUMMARY ---
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 Is this a current diagnosis for this admission?: Yes - Additional Information Discharge Diet: Diabetic Discharge Activity: Activity As Tolerated Referrals: KRYSTAL REID MD [Primary Care Provider] - Follow up as needed Home Medications: RX: Aspirin [Aspirin EC] 81 mg PO DAILY 07/31/17 RX: Atorvastatin Calcium [Lipitor 40 mg Tablet] 40 mg PO DAILY 07/31/17 RX: Metformin HCl [Glucophage] 1,000 mg PO BIDACBS 07/31/17 RX: Mv-Min/Iron/Folic/Calcium/Vitk [Women's Multivitamin Tablet] 1 tab PO DAILY 07/31/17 RX: Sertraline HCl [Zoloft 50 mg Tablet] 50 mg PO DAILY 07/31/17 RX: Buspirone HCl [Buspar 10 mg Tablet] 10 mg PO BID 08/29/19 RX: Canagliflozin [Invokana] 300 mg PO DAILY 08/29/19 RX: Glipizide [Glucotrol 10 mg Tablet] 10 mg PO DAILY 08/29/19 RX: Lisinopril [Prinivil] 20 mg PO DAILY 08/29/19 RX: Omeprazole 40 mg PO DAILY 08/29/19 History of Present Illiness History of Present Illness: KVNG CARRILLO is a 64 year old female,She came to emergency room for evaluation of atypical chest pain, in the emergency room CT angiogram was done, it was negative for pulmonary embolism. 3 sets of cardiac enzymes were negative for acute HI. She had coronary angiogram done 2 years ago which was normal Hospital Course Hospital Course: She was admitted for observation, and evaluation of chest pain. 3 sets of cardiac enzymes negative for acute HI She was chest pain-free throughout hospital stay Physical Exam Vital Signs: Temp Pulse Resp BP Pulse Ox 98.6 F 75 16 126/60 H 99 08/29/19 18:22 08/29/19 18:22 08/29/19 18:22 08/29/19 18:22 08/29/19 18:22 Intake & Output 08/28/19 08/29/19 08/30/19 06:59 06:59 06:59 Intake Total 1100 938 Output Total 0 Balance 1100 938 Weight 79.1 kg General appearance: PRESENT: no acute distress Eye exam: PRESENT: PERRLA Respiratory exam: PRESENT: clear to auscultation alessandra Cardiovascular exam: PRESENT: +S1, +S2 GI/Abdominal exam: PRESENT: soft Neurological exam: PRESENT: alert, CN II-XII grossly intact Results Laboratory Results: WBC 6.6 10^3/uL (4.0-10.5) 08/29/19 04:03 RBC 3.93 10^6/uL (3.72-5.28) 08/29/19 04:03 Hgb 11.8 g/dL (12.0-15.5) L 08/29/19 04:03 Hct 35.4 % (36.0-47.0) L 08/29/19 04:03 MCV 90 fl (80-97) 08/29/19 04:03 MCH 30.2 pg (27.0-33.4) 08/29/19 04:03 MCHC 33.5 g/dL (32.0-36.0) 08/29/19 04:03 RDW 14.2 % (11.5-14.0) H 08/29/19 04:03 Plt Count 151 10^3/uL (150-450) 08/29/19 04:03 Lymph % (Auto) 43.6 % (13-45) 08/29/19 04:03 [place] % (Auto) 7.3 % (3-13) 08/29/19 04:03 Eos % (Auto) 3.1 % (0-6) 08/29/19 04:03 Baso % (Auto) 0.3 % (0-2) 08/29/19 04:03 Absolute Neuts (auto) 3.0 10^3/uL (1.7-8.2) 08/29/19 04:03 Absolute Lymphs (auto) 2.9 10^3/uL (0.5-4.7) 08/29/19 04:03 Absolute Monos (auto) 0.5 10^3/uL (0.1-1.4) 08/29/19 04:03 Absolute Eos (auto) 0.2 10^3/uL (0.0-0.6) 08/29/19 04:03 Absolute Basos (auto) 0.0 10^3/uL (0.0-0.2) 08/29/19 04:03 Seg Neutrophils % 45.7 % (42-78) 08/29/19 04:03 APTT 28.0 SEC (23.5-35.8) 08/28/19 22:07 Sodium 136.2 mmol/L (137-145) L 08/29/19 04:03 Potassium 4.2 mmol/L (3.6-5.0) 08/29/19 04:03 Chloride 105 mmol/L (98-107) 08/29/19 04:03 Carbon Dioxide 25 mmol/L (22-30) 08/29/19 04:03 Anion Gap 6 (5-19) 08/29/19 04:03 BUN 19 mg/dL (7-20) 08/29/19 04:03 Creatinine 0.60 mg/dL (0.52-1.25) 08/29/19 04:03 Est GFR ( Amer) > 60 (>60) 08/29/19 04:03 Est GFR (MDRD) Non-Af > 60 (>60) 08/29/19 04:03 Glucose 136 mg/dL (75-110) H 08/29/19 04:03 POC Glucose 219 mg/dL (70-110) H 08/29/19 16:32 Calcium 8.9 mg/dL (8.4-10.2) 08/29/19 04:03 Phosphorus 3.3 mg/dL (2.5-4.5) 08/28/19 22:07 Magnesium 1.7 mg/dL (1.6-2.3) 08/28/19 22:07 Total Bilirubin 1.0 mg/dL (0.2-1.3) 08/29/19 04:03 Direct Bilirubin 0.0 mg/dL (0.0-0.4) 08/29/19 04:03 Neonat Total Bilirubin Not Reportable 08/29/19 04:03 Neonat Direct Bilirubin Not Reportable 08/29/19 04:03 Neonat Indirect Bili Not Reportable 08/29/19 04:03 AST 36 U/L (14-36) 08/29/19 04:03 ALT 32 U/L (<35) 08/29/19 04:03 Alkaline Phosphatase 74 U/L (38-126) 08/29/19 04:03 Creatine Kinase 26 U/L (30-135) L 08/29/19 09:46 CK-MB (CK-2) 0.73 ng/mL (<4.55) 08/29/19 09:46 Troponin I < 0.012 ng/mL 08/29/19 09:46 Total Protein 5.7 g/dL (6.3-8.2) L 08/29/19 04:03 Albumin 3.5 g/dL (3.5-5.0) 08/29/19 04:03 08/28/19 08/28/19 08/28/19 13:30 15:42 22:07 CK-MB (CK-2) 1.10 Troponin I < 0.012 < 0.012 < 0.012 08/29/19 08/29/19 04:03 09:46 CK-MB (CK-2) 0.81 0.73 Troponin I < 0.012 < 0.012 Impressions: Chest X-Ray 08/28/19 13:34 IMPRESSION: NO ACUTE RADIOGRAPHIC FINDING IN THE CHEST. Chest/Abdomen CTA 08/28/19 14:56 IMPRESSION: There is no pulmonary embolus. There is no aortic aneurysm or dissection. No acute finding in the thorax. Stroke Is this a Stroke Patient?: No Acute Heart Failure - Is this a Heart Failure Patient?: No
[2019-08-30] MEDS ORDERED: PANTOPRAZOLE SODIUM 40 MG TABLET.DR PO SCH (08:00)
[2019-08-30] MEDS ORDERED: (PENDING PHARMACY ID) (Mv-Min/Iron/Folic/Calcium/Vitk [Women's Multivitamin Tablet] 1 TAB) PO SCH (10:00)
[2019-08-30] MEDS ORDERED: (PENDING PHARMACY ID) (Lisinopril [Prinivil] 20 MG) PO SCH (10:00)
[2019-08-30] MEDS ORDERED: MULTIVITAMIN TABLET PO SCH (10:00)
[2019-08-30] MEDS ORDERED: (PENDING PHARMACY ID) (Canagliflozin [Invokana] 300 MG) PO SCH (10:00)
[2019-08-30] MEDS ORDERED: LISINOPRIL 10 MG TABLET PO SCH (10:00)
[2019-08-30] MEDS ORDERED: SERTRALINE HCL 50 MG TABLET PO SCH (10:00)
[2019-08-30] MEDS ORDERED: ATORVASTATIN CALCIUM 40 MG TABLET PO SCH (10:00)
[2019-08-30] MEDS ORDERED: GLIPIZIDE 10 MG TABLET PO SCH (10:00)
[2019-08-30] MEDS ORDERED: ASPIRIN 81 MG TABLET, ENT COATED PO SCH (10:00)
== END 2019-08-29 18:47 | disposition home or self-care (01) ==
LOC: ER 13:02 → EH 19:07 → 3W 21:34
PROVIDERS: ADMIT Internal Medicine; ATTEND Internal Medicine
DX: R07.89 Other chest pain (principal); G61.0 Guillain-Barre syndrome; K21.9 Gastro-esophageal reflux disease without esophagitis; I10 Essential (primary) hypertension; E11.42 Type 2 diabetes mellitus with diabetic polyneuropathy; R11.0 Nausea; E78.00 Pure hypercholesterolemia, unspecified; R06.02 Shortness of breath; M19.90 Unspecified osteoarthritis, unspecified site; Z79.899 Other long term (current) drug therapy; Z79.82 Long term (current) use of aspirin; Z79.84 Long term (current) use of oral hypoglycemic drugs; Z98.84 Bariatric surgery status; Z87.891 Personal history of nicotine dependence; Z82.49 Family history of ischemic heart disease and other diseases of the circulatory system
CPT/HCPCS: 93005; 99285; 96360; 96361; 36415 ×2; 82553 ×2; 82962 ×2; 82550 ×2; 83735; 84100; 85025 ×2; 85730; 80048; 80053; 84484 ×2; 71045; 71275; 93010; A9270 ×3; J1650 ×2; J7030; G0378; J1815

== ENCOUNTER → 2019-09-23 | Outpatient (CLI) | payer MEDICARE, OTHER ==
--- NOTE | 2019-09-23 19:46 | XCELERA REPORT ---
[address] [address] Transthoracic Echocardiogram Report Name: KVNG CARRILLO Age: 64 yrs Gender: Female : 1955 Patient Status: Outpatient Patient Location: Study Date: 09/23/2019 09:08 AM Height: 64 in Weight: 214 lb BSA: 2.0 m2 Procedure: A two-dimensional transthoracic echocardiogram with color flow and Doppler was performed. The study was technically difficult with many images being suboptimal in quality. Reason For Study: Chest pain History: CHEST PAIN. Ordering Physician: KRYSTAL REID Performed By: Layton Kelly Interpretation Summary The left ventricle is normal in size. There is normal left ventricular wall thickness. LV EF is 65% Left ventricular systolic function is normal. Doppler measurements suggest impaired left ventricular relaxation, which is associated with grade I/IV or mild diastolic dysfunction The left ventricular wall motion is normal. There is no thrombus. No ASD ,VSD , or PFO seen. The right ventricle is grossly normal size. The right ventricle is not well visualized secondary to technical limitations The right atrium is normal. The left atrial size is normal. There is no evidence of mitral valve prolapse. There is no vegetation seen on the mitral valve. There is no mitral valve stenosis. There is a trace amount of mitral regurgitation There is no aortic valvular vegetation. There is no aortic valve stenosis There is no LVOT obstruction. No aortic regurgitation is present. There is no tricuspid stenosis. There is a trace to mild amount of tricuspid regurgitation There is mild pulmonary hypertension by echo RVSP is 31 o 36 mm of Hg , with RA mean of 5 to 10. There is no pulmonic valvular stenosis. There is no pulmonic valvular regurgitation. The aortic root is normal size. The inferior vena cava appeared normal and decreased > 50% with respiration (RAP 5-10 mmHg) There is no pericardial effusion. MMode/2D Measurements & Calculations RVDd: 2.5 cm LVIDd: 4.2 cm FS: 34.1 % Ao root diam: 2.5 cm IVSd: 0.76 cm LVIDs: 2.8 cm EDV(Teich): 78.1 ml Ao root area: 4.7 cm2 LVPWd: 1.3 cm ESV(Teich): 28.5 ml LA dimension: 3.7 cm EF(Teich): 63.5 % Doppler Measurements & Calculations MV E max renee: MV P1/2t max renee: Ao V2 max: LV V1 max P.8 cm/sec 85.9 cm/sec 115.4 cm/sec 3.7 mmHg MV A max renee: MV P1/2t: 78.2 msec Ao max P.3 mmHg LV V1 max: 117.5 cm/sec MVA(P1/2t): 2.8 cm2 95.8 cm/sec MV E/A: 0.79 MV dec slope: 321.6 cm/sec2 MV dec time: 0.23 sec PA V2 max: TR max renee: MV P1/2t-pr_phl: 131.4 cm/sec 253.8 cm/sec 78.2 msec PA max P.9 mmHg TR max P.8 mmHg Left Ventricle The left ventricle is normal in size. There is normal left ventricular wall thickness. LV EF is 65%. Left ventricular systolic function is normal. Doppler measurements suggest impaired left ventricular relaxation, which is associated with grade I/IV or mild diastolic dysfunction. The left ventricular wall motion is normal. There is no thrombus. No ASD ,VSD , or PFO seen. Right Ventricle The right ventricle is grossly normal size. The right ventricle is not well visualized secondary to technical limitations. Atria The right atrium is normal. The left atrial size is normal. Mitral Valve There is no evidence of mitral valve prolapse. There is no vegetation seen on the mitral valve. There is no mitral valve stenosis. There is a trace amount of mitral regurgitation. Aortic Valve There is no aortic valvular vegetation. There is no aortic valve stenosis. There is no LVOT obstruction. No aortic regurgitation is present. Tricuspid Valve There is no tricuspid stenosis. There is a trace to mild amount of tricuspid regurgitation. There is mild pulmonary hypertension by echo. RVSP is 31 o 36 mm of Hg , with RA mean of 5 to 10. Pulmonic Valve There is no pulmonic valvular stenosis. There is no pulmonic valvular regurgitation. Great Vessels The aortic root is normal size. The inferior vena cava appeared normal and decreased > 50% with respiration (RAP 5-10 mmHg). Effusions There is no pericardial effusion. : KRYSTAL REID Lakshmi
== END ==
LOC: SP 08:41
PROVIDERS: ATTEND Internal Medicine
DX: I10 Essential (primary) hypertension (principal); R07.9 Chest pain, unspecified
CPT/HCPCS: 93306

== ENCOUNTER → 2019-09-25 | Outpatient (CLI) | payer MEDICARE, OTHER ==
[~2019-09-25] MED LIST: REGADENOSON INJ 0.4 MG/5 ML DISP.SYRIN IV ONE
--- NOTE | 2019-09-25 20:16 | DRAGON STRESS TEST REPORT ---
Intravenous Lexiscan Cardiolite stress test using single photon emmision computerized tomography. Date of procedure: 09/25/2019. Ordering Provider: Dr. Wynn. Patient's status: Out Patient. Indication: Chest pain. Coronary risk factors: Resting EKG: Sinus Rhythm. Poor R wave progression leads V1 to V6. Stress EKG: No changes of ischemia. The patient had no chest pain or discomfort. And there was no arrhythmias seen. Reason for termination: Protocol. Conclusions: Normal EKG and hemodynamic response to IV Lexiscan. Nuclear data: At rest the patient was given 15.34 millicuries of technetium 99m sestamibi injected intravenously. As per protocol rest non gated SPECT images were obtained. Subsequently the patient was given intravenous Lexiscan at a dose of 0.4 mg in 5 mL intravenously, followed by flush with normal saline. Subsequently the stress dose of 38.2 millicuries of technetium 99m sestamibi was injected intravenously. As per protocol stress gated images were obtained. Nuclear interpretation: Review of images showed that all segments of the myocardium had normal perfusion at rest, and normal perfusion post stress with IV Lexiscan. All segments of the myocardium had normal motion, contraction, and thickening by gated study. T. I D. ratio was normal at 1.01. There is no transient ischemic dilatation of the left ventricle. Computer read rest, and stress left ventricular ejection fraction were 65 %, and 62 %, respectively. Visually both the stress and rest ejection fractions were normal, and greater than 65 %. Conclusion: 1. There is no scintigraphic evidence of Lexiscan induced myocardial ischemia. 2. There is no scintigraphic evidence of myocardial infarction/scar. Recommendations: Aggressive risk factor modification, and treating the underlying co- morbidities. [facility]
== END ==
LOC: RAD 06:36
PROVIDERS: ATTEND Internal Medicine
DX: R07.9 Chest pain, unspecified (principal)
CPT/HCPCS: 93017; 78452; A9500; J2785; Q9969

== ENCOUNTER → 2020-02-19 | Outpatient (CLI) | payer MEDICARE, OTHER ==
[2020-02-19 11:37] VITALS: BP 142/67
--- NOTE | 2020-02-19 11:37 | ER RDC ASSESSMENT REPORT ---
Intake - In the Last 14 days Have you traveled outside [place]?: No Have you been in close contact with someone CONFIRMED: Yes Worked in Healthcare?: No - Symptoms Subjective Fever([place] feverish): No Chills: Yes Muscule Aches: No Runny Nose: Yes Sore Throat: Yes Cough (New or worsening chronic cough): Yes Shortness of breath: Yes Nausea or Vomiting: No Headache: No Abdominal Pain: No Diarrhea(3 or more loose stools in last 24 hours): No - Do you have any of the following Chronic lung disease: Asthma or emphysema or COPD: No Cystic Fibrosis: No Diabetes: Yes High Blood Pressure: Yes Cardiovascular Disease: Yes Chronic Kidney Disease: No Chronic Liver Disease: Yes Chronic blood disorder like Sickle Cell Disease: No Weak immune system due to disease or medication: No Neurologic condition that limits movement: No Developmental delay - Moderate to Severe: No Morbid Obesity (>100 pounds over ideal weight): No - Objective Temperature: 99.0 F Pulse Rate: 80 Respiratory Rate: 18 Blood Pressure: 142/67 O2 Sat by Pulse Oximetry: 97 Objective: Given above, testing performed: Flu and strep Covid Disposition: Home; Selfcare General - General Stated Complaint: Flu like symptoms Time Seen by Provider: 02/19/20 11:15 Mode of Arrival: Ambulatory Information source: Patient - HPI Notes: 64-year-old female presents to [facility] clinic for COVID-19 testing. Patient reports she did have contact with Covid positive individual approximately 1 week ago at her workplace. Onset of symptoms 02/18/2020. Patient is reporting chills, runny nose, sore throat, cough, and mild shortness of breath on exertion only. Denies any significant fevers, muscle aches, nausea or vomiting, headache, abdominal pain, diarrhea, or changes in taste or smell. - Related Data Allergies/Adverse Reactions: erythromycin lactobionate [From Erythrocin] Allergy (Severe, Verified 03/16/17 12:29) Influenza Virus Vaccines [Influenza Virus Vaccine] Allergy (Severe, Verified 03/16/17 12:29) sumatriptan [From Imitrex] Allergy (Severe, Verified 03/16/17 12:29) pineapple [Pineapple] Allergy (Unknown, Verified 03/16/17 12:29) Past Medical History - General Information source: Patient - Social History Smoking Status: Former Smoker Family History: CAD, CVA, DM, Hyperlipidemia, Hypertension, Malignancy - Past Medical History Cardiac Medical History: Reports: Hx Hypercholesterolemia - meds to protect kidneys, Hx Hypertension - meds to protect kidneys Pulmonary Medical History: Reports: None Denies: Hx Tuberculosis EENT Medical History: Reports: None Neurological Medical History: Reports: None Endocrine Medical History: Reports: Hx Diabetes Mellitus Type 2 Renal/ Medical History: Reports: None. Denies: Hx Peritoneal Dialysis Malignancy Medical History: Reports: None GI Medical History: Reports: Hx Gastroesophageal Reflux Disease Musculoskeletal Medical History: Reports Hx Arthritis, Reports Hx Musculoskeletal Deformity, Reports Hx Musculoskeletal Trauma Skin Medical History: Reports None Psychiatric Medical History: Reports: Hx Depression Traumatic Medical History: Reports: Hx Fractures Infectious Medical History: Reports: None Past Surgical History: Reports: Hx Adenoidectomy, Hx Appendectomy, Hx Cardiac Catheterization - 2018 no stents, Hx Gastric Bypass Surgery - Gastric sleeve, Hx Hysterectomy, Hx Nose Surgery - For fractured nose, Hx Oral Surgery - Thornton teeth, Hx Orthopedic Surgery - orif left tibia and foot, Right knee replacement, Hx Tonsillectomy Physical Exam - General General appearance: Appears well, Alert In distress: None Notes: PHYSICAL EXAMINATION: GENERAL: Well-appearing and in no acute distress. HEAD: Atraumatic, normocephalic. EYES: sclera anicteric, conjunctiva are normal. ENT: nares patent. Moist mucous membranes. NECK: Normal range of motion, supple without lymphadenopathy. LUNGS: No increased work of breathing. Lung sounds CTAB and equal. No wheezes rales or rhonchi. HEART: Regular rate and rhythm without murmurs. ABDOMEN: Soft, nontender, normal bowel sounds, no guarding. EXTREMITIES: Normal range of motion, no pitting edema. No cyanosis. NEUROLOGICAL: A&O x 3. Normal speech. PSYCH: Normal mood, normal affect. SKIN: Warm, Dry, normal turgor, no rashes or lesions noted Patient Education/Counseling Counseling/Education: Patient presents with symptoms associated with possible Covid 19 infection. Patient does not have emergency worrying symptoms such as difficulty breathing, shortness of breath, chest pain, pressure, confusion or cyanosis. Patient appears suitable for discharge as vital signs are stable and patient is nontoxic in appearance. Good return precautions have been discussed with patient, patient verbalized understanding and is agreeable with discharge plan of care at this time. Guidance for worsening S/SX: As a person under investigation for Covid 19, the [place] department of Health and Human Services, division of public health advises you to adhere to the following guidance until your test results are reported to you. If your test result is positive, you will receive additional information from your provider and your local health department at that time. Remain at home until you are cleared by the health provider or public health authorities. Keep a log of visitors to your home, notify any visitors to your home of your isolation status. If you plan to move to a new address or leave the county, notify the local health department in your County. Call your doctor or seek care if you have an urgent medical need. Before seeking medical care, call ahead to get instructions from the provider before arriving at the medical office clinic or hospital. Notify them that you are being tested for the virus that causes Covid 19 so that arrangements can be made, as necessary, to prevent transmission to others in the healthcare setting. Next, notify the local health department in your county. If a medical emergency arises and you need to call 911, inform the first responders that you are being tested for the virus that causes Covid 19. Next, notify the local health department in your county. RDC Discharge - Discharge Clinical Impression: Encounter for screening laboratory testing for COVID-19 virus Upper respiratory infection Qualifiers: URI type: unspecified URI Qualified Code(s): J06.9 - Acute upper respiratory infection, unspecified Condition: Good Disposition: Home; Selfcare
[2020-02-19 14:22] LABS: A TYPE INFLUENZA AG NEGATIVE (NEGATIVE); B INFLUENZA AG NEGATIVE (NEGATIVE)
== END ==
LOC: RDC 10:47
PROVIDERS: ATTEND Registered Nurse
DX: J06.9 Acute upper respiratory infection, unspecified (principal); Z20.828 Contact with and (suspected) exposure to other viral communicable diseases; R68.83 Chills (without fever); J02.9 Acute pharyngitis, unspecified; R09.89 Other specified symptoms and signs involving the circulatory and respiratory systems; R05 Cough; R06.02 Shortness of breath; I10 Essential (primary) hypertension; E11.9 Type 2 diabetes mellitus without complications; E78.00 Pure hypercholesterolemia, unspecified; K21.9 Gastro-esophageal reflux disease without esophagitis; M13.80 Other specified arthritis, unspecified site; Z88.1 Allergy status to other antibiotic agents; Z88.6 Allergy status to analgesic agent; Z88.7 Allergy status to serum and vaccine; Z91.018 Allergy to other foods; Z87.891 Personal history of nicotine dependence; Z86.59 Personal history of other mental and behavioral disorders
CPT/HCPCS: 87070; 87880; 87804; U0003; C9803; 87635